=== PATIENT | male | born 1985 | race Caucasian/White ===

== ENCOUNTER 2022-06-27 16:06 | Emergency (ER) | payer SELFPAY ==
[2022-06-27 16:15] VITALS: BP 108/69; PULSE 81; RESP 16; TEMP 36.8; O2SAT 96
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
[2022-06-27 17:59] VITALS: RESP 16; O2SAT 94
[2022-06-27] MEDS: benzonatate 100 mg Capsule PO (17:59)
[2022-06-27] MEDS: morphine 4 mg/mL SDV 1 mL IM (17:59)
[2022-06-27 18:30] VITALS: BP 111/82; PULSE 72; RESP 16; O2SAT 95
== END 2022-06-27 18:48 | disposition home or self-care (01) ==
LOC: ER 18:02 → NP 09-19 17:13
PROVIDERS: Emergency Provider Emergency Medicine; PCP Physician Assistant Medical
DX: R09.1 Pleurisy (principal)
CPT/HCPCS: 71046; 96372; 99284; J2270

== ENCOUNTER 2023-04-13 18:12 | Emergency (ER) | payer OTHER, SELFPAY ==
[2023-04-13 18:28] VITALS: BP 122/78; PULSE 86; RESP 15; TEMP 36.7; O2SAT 96
--- NOTE | 2023-04-13 19:26 | XRR_ITS ---
PROCEDURE INFORMATION: Exam: XR Chest Exam date and time: 04/13/2023 7:36 PM Age: 37 years old Clinical indication: Dyspnea; Additional info: Dyspnea asthma TECHNIQUE: Imaging protocol: Radiologic exam of the chest. Views: 1 view. COMPARISON: CR XR chest 2V* [id number] 06/27/2022 4:51 PM FINDINGS: Lungs: Unremarkable. No consolidation. Pleural spaces: Unremarkable. No pleural effusion. No pneumothorax. Heart/Mediastinum: Unremarkable. No cardiomegaly. Bones/joints: Unremarkable. XR/XR chest 1V portable [id number] IMPRESSION: No acute findings.
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
[2023-04-13] MEDS: dexamethasone 10 mg/mL INJ IM (19:40)
[2023-04-13 19:41] VITALS: BP 119/90; PULSE 79; O2SAT 97
[2023-04-13 19:46] VITALS: PULSE 80; RESP 17; O2SAT 97
[2023-04-13] MEDS: ipratropium-albuterol 3 mL Neb INHALATION (19:49)
[2023-04-13 19:52] VITALS: PULSE 88
[2023-04-13 19:53] LABS: Basophils % 0.4 %; Eosinophils # 0.3 10^3/uL (0.0-0.8); Eosinophils % 2.7 %; Hematocrit 48.1 % (37-53); Lymphocytes # 2.5 10^3/uL (0.8-4.8); Lymphocytes % 26.4 %; Mean Corpuscular HGB Conc 34.5 g/dL (30-55); Mean Corpuscular Hemoglobin 29.9 pg (27-33); Mean Corpuscular Volume 86.7 fl (82-101); Mean Platelet Volume 9.4 fL (7.4-10.4); Monocytes # 0.7 10^3/uL (0.2-0.9); Monocytes % 7.6 %; Neutrophils # 5.87 10^3/uL (1.8-7.7); Neutrophils % 62.4 %; Nucleated Red Blood Cells % 0 %; Platelet Count 280 10^3/cmm (157-399); Red Blood Count 5.55 10^6/uL (3.85-5.65); Red Cell Distribution Width 12.5 % (12.1-15.1); White Blood Count 9.42 10^3/uL (3.29-11.43)
[2023-04-13] MEDS: ketorolac 60 mg/2 mL INJ IM (20:08)
[2023-04-13 20:16] LABS: Alanine Aminotransferase 63 U/L (0-41); Albumin Level 4.5 g/dL (3.5-5.2); Alkaline Phosphatase 148 U/L (40-130); Aspartate Amino Transferase 32 U/L (0-40); Blood Urea Nitrogen 12 mg/dL (6-20); Calcium 9.1 mg/dL (8.5-10.5); Carbon Dioxide 26 mmol/L (22-29); Chloride 103 mmol/L (98-107); Globulin 2.9 g/dL (1.3-4.6); Glomerular Filtration Rate 94.4 mL/min (90-130); Glucose 98 mg/dL (65-115); Osmolality Calculated 292 mOsm/kg (285-295); Sodium 141 mmol/L (136-145); Total Bilirubin 0.7 mg/dL (0.15-1.2); Total Protein 7.4 g/dL (6.6-8.7)
== END 2023-04-13 20:36 | disposition home or self-care (01) ==
PROVIDERS: Emergency Provider Emergency Medicine; PCP Nurse Practitioner
DX: J45.21 Mild intermittent asthma with (acute) exacerbation (principal); G43.909 Migraine, unspecified, not intractable, without status migrainosus
CPT/HCPCS: 36415; 71045; 80053; 85025; 94640; 96372; 99284; J1100; J1885

== ENCOUNTER 2023-08-01 19:15 | Emergency (ER) | payer OTHER, SELFPAY ==
--- NOTE | 2023-08-01 19:18 | XRR_ITS ---
PROCEDURE INFORMATION: Exam: XR Chest Exam date and time: 08/01/2023 7:31 PM Age: 38 years old Clinical indication: Shortness of breath; Additional info: SOB TECHNIQUE: Imaging protocol: Radiologic exam of the chest. Views: 1 view. COMPARISON: CR XR chest 1V portable [id number] 04/13/2023 7:36 PM FINDINGS: Lungs: Unremarkable. No consolidation. Pleural spaces: Unremarkable. No pleural effusion. No pneumothorax. Heart/Mediastinum: Unremarkable. No cardiomegaly. Bones/joints: Unremarkable. XR/XR chest 1V portable [id number] IMPRESSION: No acute findings.
[2023-08-01 19:24] VITALS: BP 127/92; PULSE 92; RESP 17; TEMP 36.6; O2SAT 98; BMI 29.2
--- NOTE | 2023-08-01 20:05 | ED_ITS ---
HPI - SOB/Dyspnea General: Chief Complaint: Shortness of Breath/Dyspnea Stated Complaint: SOB Time Seen by Provider: 08/01/23 20:00 History of Present Illness: HPI Narrative: 38-year-old male presents emergency depa rtment with complaints of feeling like he has the start of an asthma attack. He states he is very aware of when he starts to have an asthma attack as he has had asthma for a very long time. He states that usually this time of year with his weather change and thinks that he has been doing outside can cause his asthma to flare and have significant difficulties. He states that he is maxed out his rescue inhaler and feels that it is not correcting his expiratory wheezing and feelings of shortness of breath. He denies chest pain dizziness or lightheaded feeling. He denies nausea or vomiting. He denies recent sick contacts or productive cough. Review of Systems General: Reports: 10 or more systems reviewed and unremarkable except in HPI and below Resp: Reports: dyspnea and wheezing [facility] ED PFSH: Medical History Psychiatric care Physical Exam Narrative: EXAM NARRATIVE: Constitutional: the patient appears well nourished and of normal development. Vital signs as documented. No acute distress at present. Alert and oriented-to person, place, time and situation. Head, eyes, ears, nose, mouth, throat: Normocephalic, atraumatic. Pupils-equal, round, reactive to light. No scleral icterus. Normal-appearing external ears. Normal appearing nasal turbinates, no drainage. No obvious oral lesions, posterior oropharynx without erythema or exudates. Neck: Supple, trachea is midline, no lymphadenopathy, no jugular venous distension, thyromegaly, or carotid bruits. Carotid upstrokes are brisk bilaterally. Lungs: Bilateral expiratory wheezes noted. Slightly tachypneic, symmetrical rise and fall of chest, mild increased work of breathing at present. Cardiac: Regular rate and rhythm, positive S1, S2. No murmurs, rubs or gallops that I can appreciate Abdomen: Soft, non-tender to palpation, normal active bowel sounds to all quadr ants. No palpable masses, no organomegaly and abdominal bruits. Extremities: 2+ pulses in the upper extremities that are equal bilaterally, 2+ pulses in the lower extremities that are equal bilaterally. Non-edematous. Moves all extremities well, sensation to all extremities are noted. Skin: Warm, dry, intact. Course Vital Signs: Vital signs: Vital Signs Temperature 97.8 F 08/01/23 19:24 Pulse Rate 94 08/01/23 20:22 Respiratory Rate 18 08/01/23 20:14 Blood Pressure 127/92 08/01/23 19:24 Pulse Oximetry 98 08/01/23 20:22 Oxygen Delivery Me thod Room Air 08/01/23 20:22 MDM - SOB/Dyspnea Medical Decision Making Physical exam completed and documented the patient stated he did not wish to have any laboratory evaluation or an EKG but would allow us to do a chest x-ray steroid medication ministration and a DuoNeb breathing treatment. Medical Records I reviewed the patient's medical records. Lab Data Labs/Radiology: Radiology Impressions Chest X-Ray 08/01/23 19:18 IMPRESSION: No acute findings. All radiology interpretation(s) finalized by discharge Discharge Plan Discharge Patient Disposition: Home Clinical Impression: Asthma with exacerbation Qualifiers: Asthma severity: mild Asthma persistence: intermittent Qualified Code(s): J45.21 - Mild intermittent asthma with (acute) exacerbation Condition: Stable Prescriptions: New prednisone 20 mg tablet 40 mg PO DAILY 5 Days Qty: 10 0RF albuterol sulfate 90 mcg/actuation HFA aerosol inhaler 2 inh inhalation Q6H PRN (Reason: shortness of breath or wheezing) Qty: 8.5 0RF No Action clindamycin HCl 300 mg capsule 300 mg PO TID 7 Days Qty: 21 0RF albuterol sulfate 90 mcg/actuation HFA aerosol inhaler 2 puff inhalation Q6H PRN Spiriva with HandiHaler 18 mcg capsule, w/inhalation device 1 cap inhalation DAILY Rx Instructions: puncture 1 cap using device; one dose = 2 inhalations omeprazole 20 mg capsule,delayed release(DR/EC) 20 mg PO BID diclofenac sodium 25 mg tablet,delayed release (DR/EC) 25 mg PO BID citalopram [Celexa] 20 mg tablet 20 mg PO DAILY Qty: 30 2RF quetiapine 25 mg tablet 25 mg PO .qhs 30 Days Qty: 30 3RF bupropion HCl 75 mg tablet See Rx Instructions .ROUTE .COMPLEX 30 Days Qty: 30 3RF Rx Instructions: Take a half tab p.o. every a.m. x8 days then take a whole tab p.o. every a.m. if tolerated buspirone 30 mg tablet 30 mg PO BID 30 Days Qty: 60 2RF Discharge Orders: Discharge ED (Routine); Ordered 08/01/23 Ordered By: Harsh Quintana Referrals: Yamilex Jiménez FNP-BC [Primary Care Provider] - Discharge Diet: Advance as tolerated Discharge Activity: Resume usual activity Patient Instructions: Opioid Safety, Pain Management Activity Restrictions/Additional Instructions: Activity Restrictions/Additional Instructions: Thank you for choosing [facility] for your healthcare needs today. Please realize that you were seen in the Emergency Department and that we are providing you with an emergency medical screening exam and this may not be a complete and all inclusive of all the testing and or medical work-up that you may need to determine your ailment or severity of your illness. It is very important that you follow-up as instructed with your Primary care provider or Specialist for additional evaluation and to discuss your medical treatment plan. You may return to the Emergency Department should you have concerns or if your condition changes or worsens in any way. 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
[2023-08-01 20:14] VITALS: PULSE 83; RESP 18; O2SAT 95
[2023-08-01] MEDS: ipratropium-albuterol 3 mL Neb INHALATION (20:14)
[2023-08-01 20:22] VITALS: PULSE 94; O2SAT 98
[2023-08-01] MEDS: methylPREDNISolone sod succ 125 mg/2 mL INJ 60 MG IM (20:33)
== END 2023-08-01 20:36 | disposition home or self-care (01) ==
PROVIDERS: Emergency Provider Internal Medicine; PCP Nurse Practitioner
DX: J45.21 Mild intermittent asthma with (acute) exacerbation (principal)
CPT/HCPCS: 71045; 94640; 96372; 99285; J2930

== ENCOUNTER 2023-10-29 15:15 | Inpatient (IN) | payer BC, SELFPAY ==
[2023-10-29 15:16] VITALS: BMI 27.8
[2023-10-29 15:18] VITALS: BP 131/98; PULSE 113; RESP 16; TEMP 36.9; O2SAT 99
[2023-10-29 16:20] LABS: Amphetamines Screen Urine Negative (Negative); Barbiturates Screen Urine Negative (Negative); Benzodiazepines Screen Urine Negative (Negative); Cocaine Screen Urine Negative (Negative); Opiate Screen Urine Negative (Negative); PCP Screen Urine Negative (Negative); THC Screen Urine Negative (Negative)
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
[2023-10-29 17:07] LABS: Basophils # 0.1 10^3/uL (0.0-0.1); Basophils % 0.7 %; Eosinophils # 0.2 10^3/uL (0.0-0.8); Eosinophils % 1.7 %; Hematocrit 50.8 % (37-53); Lymphocytes # 1.4 10^3/uL (0.8-4.8); Lymphocytes % 14.3 %; Mean Corpuscular HGB Conc 34.4 g/dL (30-55); Mean Corpuscular Hemoglobin 30.5 pg (27-33); Mean Corpuscular Volume 88.5 fl (82-101); Mean Platelet Volume 10.1 fL (7.4-10.4); Monocytes # 0.6 10^3/uL (0.2-0.9); Monocytes % 6.2 %; Neutrophils # 7.69 10^3/uL (1.8-7.7); Neutrophils % 76.7 %; Nucleated Red Blood Cells % 0 %; Platelet Count 254 10^3/cmm (157-399); Red Blood Count 5.74 10^6/uL (3.85-5.65); Red Cell Distribution Width 12.1 % (12.1-15.1); White Blood Count 10.02 10^3/uL (3.29-11.43)
[2023-10-29 17:41] LABS: Alanine Aminotransferase 58 U/L (0-41); Albumin Level 4.3 g/dL (3.5-5.2); Alkaline Phosphatase 160 U/L (40-130); Anion Gap 16.2 (5-19); Aspartate Amino Transferase 36 U/L (0-40); Blood Urea Nitrogen 14 mg/dL (6-20); Calcium 9.5 mg/dL (8.5-10.5); Carbon Dioxide 25 mmol/L (22-29); Chloride 102 mmol/L (98-107); Creatinine Clr Calc Pharmacy 103.8913; Glomerular Filtration Rate 74.5 mL/min (90-130); Glucose 125 mg/dL (65-115); Osmolality Calculated 290 mOsm/kg (285-295); Potassium 4.2 mmol/L (3.5-5.1); Salicylate 1.5 mg/dL (3-10); Sodium 139 mmol/L (136-145); Thyroid Stimulating Hormone 1.62 uIU/mL (0.27-4.20); Total Bilirubin 0.8 mg/dL (0.15-1.2); Total Protein 7.3 g/dL (6.6-8.7)
[2023-10-29 17:42] LABS: Acetaminophen < 5.0 ug/mL (10-30)
[2023-10-29 18:00] VITALS: PULSE 115; RESP 16; O2SAT 99
[2023-10-29 20:42] VITALS: BP 129/84; PULSE 92; RESP 18; TEMP 36.7; O2SAT 97
[2023-10-29 21:42] VITALS: BP 129/84; PULSE 92; RESP 18; TEMP 36.7; O2SAT 97
[2023-10-29 22:00] VITALS: BP 129/84; PULSE 92; RESP 18; TEMP 36.7; O2SAT 97
[2023-10-30] MEDS: trazodone 50 mg Tablet PO (01:17)
[2023-10-30] MEDS: OLANZapine 5 mg ODT PO (02:02)
[2023-10-30 06:00] VITALS: RESP 16
--- NOTE | 2023-10-30 08:38 | PC.NURSE ---
PT RESTING IN BED AROUSES TO VOICE. DENIES PAIN. PT IS OBSERVED HAVING A FLAT AFFECT AND DEPRESSED MOOD, WITHDRAWS TO ROOM. DECLINED BREAKFAST THIS AM. SNACKS OFFERED. DENIES SI/HI AND AVH AT THIS TIME. RATES ANXIETY /10 AND DEPRESSION 08/30. DECLINES NEED FOR ANXIETY MEDICATIONS. ALL QUESTIONS WERE ANSWERED AND SUPPORT WAS VOICED.
[2023-10-30] MEDS: pantoprazole DR 40 mg Tablet PO (08:53)
[2023-10-30] MEDS: montelukast sodium 10 mg Tablet PO (08:53)
[2023-10-30 09:14] VITALS: PULSE 92; RESP 16; O2SAT 97
[2023-10-30] MEDS: budesonide 0.5 mg/2 mL Neb INHALATION ×2 (09:14→21:03)
[2023-10-30] MEDS: albuterol 2.5 mg/3 mL Neb INHALATION (09:14)
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
[2023-10-30 14:00] VITALS: BP 108/75; PULSE 91; RESP 17; TEMP 36.5; O2SAT 97
[2023-10-30] MEDS: BuSPIRONE 10 mg Tablet 15 MG PO ×2 (14:29→17:12)
[2023-10-30] MEDS: cetirizine 10 mg Tablet PO (17:12)
[2023-10-30 20:38] VITALS: BP 115/78; PULSE 98; RESP 18; TEMP 36.9; O2SAT 96
[2023-10-30 21:03] VITALS: PULSE 74; RESP 16; O2SAT 97
[2023-10-31 06:00] VITALS: BP 97/61; PULSE 62; RESP 18; TEMP 36.5; O2SAT 96
[2023-10-31] MEDS: pantoprazole DR 40 mg Tablet PO (08:15)
[2023-10-31] MEDS: montelukast sodium 10 mg Tablet PO (08:15)
[2023-10-31] MEDS: BuSPIRONE 10 mg Tablet 15 MG PO ×2 (08:15→17:42)
[2023-10-31 09:04] VITALS: PULSE 62; RESP 18; O2SAT 96
[2023-10-31] MEDS: budesonide 0.5 mg/2 mL Neb INHALATION (09:04)
[2023-10-31] MEDS: acetaminophen 325 mg Tablet 650 MG PO ×2 (10:24→19:59)
[2023-10-31 14:00] VITALS: RESP 18
--- NOTE | 2023-10-31 14:43 | W.PM.NPUPNS ---
Subjective NPU Subjective: Patient presented today reporting that he is doing okay with the BuSpar. We discussed the fact that I reviewed the medications that he had been on before and we discussed the risks, benefits and alternatives of restarting those medications at appropriate doses. He began discussing interest in discharge and we discussed concerns that there were possible weapons in the home given the aggressive nature of his threats with the gun [place] present. We discussed talking with his about having the guns moved to a friend that they had reportedly discussed. He denied any side effects to medication thus far. Mental Status Exam MSE Comments: This is a well-nourished, well-developed white male in hospital scrubs with adequate grooming and limited eye contact. No abnormal movements except for mild psychomotor retardation. Cooperative with exam in mild distress. Speech was slightly decreased rate and volume. Mood described as a stressed and a little depressed, affect subdued. Thought process organized. Thought content: Patient reports symptoms of PTSD, including flashbacks and nightmares. He also reports some depression, which has occasionally led to suicidal thoughts. He reports some anxiety. He has made threats, but insists they were empty threats. He denied active suicidal or homicidal ideation, there were no delusions reported or noted, he denied any auditory or visual hallucinations. Attention and concentration appear intact and memory appears unreliable but none were formally tested. He is alert and oriented x 3. Insight and judgment are limited and impulse control is impaired. Vitals/I&O/Wt Last Vital Signs Temp 97.7 F 10/31/23 06:00 Pulse 62 10/31/23 09:04 Resp 18 10/31/23 09:04 BP 97/61 10/31/23 06:00 Pulse Ox 96 10/31/23 09:04 O2 Del Method Room Air 10/31/23 09:04 Weight last 48 hrs Weight 90.718 kg Data NPU 10/29/23 17:04 10/29/23 17:04 A&P Assessment and plan (1) Homicidal ideation: (2) Suicidal ideation: (3) PTSD (post-traumatic stress disorder): (4) Depression: (5) Anxiety: Plan Patient is a 38-year-old male admitted with concerns secondary to PTSD and significant threats that were made. Patient is struggling with PTSD, anger, and depression. He has made threats, which led to this consultation. He is currently from his and is dealing with a lawsuit related to a workplace injury. He has stopped taking his psychiatric medication. 1. Initiated BuSpar 15 mg p.o. twice daily and start Celexa 20 mg daily and Seroquel 50 mg p.o. nightly restarting the medications that seem to work for him well before he reports Dr. Jacques left and he stopped taking the medication. 2. Encourage individual, group and milieu therapy. 3. Continue q-15 minute checks for safety.? 4.? Recommend sober living treatment at the highest level of care to which the patient is willing to commit. 5. Discussed removal of guns in the home with and reported friend who might be taking the guns. Involuntary Hold Information 96 Hour Hold: 96 Hour Involuntary Admission: No Attestations NPU Medical Necessity Statement*: Inpatient hospitalization is medically necessary and deemed to ?be ?the clinically appropriate intervention ?at this time.? We will monitor/initiate medications and make changes as indicated.? The patient?s likely length of stay 1-4 days. Coding Level of Care Code Acute Code for [facility] Fwd Diagnoses Homicidal ideation R45.850 Suicidal ideation R45.851 PTSD (post-traumatic stress disorder) F43.10 Depression F32.A Anxiety F41.9
--- NOTE | 2023-10-31 17:04 | PC.NURSE ---
spoke with pt spouse Cecily who stated either or Mon all of the weapons currently at their home will be in a secured gun safe at their mutual friends (Floyd Garner) home with pt having no access to them. pt stated that Floyd will have the keys to the safe.
[2023-10-31] MEDS: cetirizine 10 mg Tablet PO (17:42)
[2023-10-31] MEDS: citalopram 20 mg Tablet PO (18:30)
[2023-10-31] MEDS: trazodone 50 mg Tablet PO (19:58)
[2023-10-31] MEDS: quetiapine 25 mg Tablet 50 MG PO (19:58)
[2023-10-31 20:01] VITALS: BP 106/76; PULSE 96; RESP 17; TEMP 36.8; O2SAT 96
[2023-11-01 06:00] VITALS: BP 109/70; PULSE 111; RESP 17; TEMP 36.8; O2SAT 96
[2023-11-01] MEDS: pantoprazole DR 40 mg Tablet PO (08:02)
[2023-11-01] MEDS: citalopram 20 mg Tablet PO (08:02)
[2023-11-01] MEDS: BuSPIRONE 10 mg Tablet 15 MG PO ×2 (08:02→17:17)
[2023-11-01] MEDS: montelukast sodium 10 mg Tablet PO (08:02)
[2023-11-01] MEDS: acetaminophen 325 mg Tablet 650 MG PO ×2 (09:00→20:28)
[2023-11-01 14:00] VITALS: BP 109/62; PULSE 90; RESP 17; TEMP 36.5; O2SAT 96
[2023-11-01] MEDS: cetirizine 10 mg Tablet PO (17:17)
--- NOTE | 2023-11-01 19:47 | P.NPUPN_ITS ---
Subjective NPU 2 Subjective: Patient presented today reporting that he is feeling better. He reports that he and his talk a lot and he is feeling optimistic that with medication and active treatment things will improve day by day. Reviewed wanting to make sure that his friend is taking responsibility for the removal of guns. He denied any side effects of the medication and we discussed a tentative plan for discharge in the morning. Mental Status Exam 2 MSE Comments: This is a well-nourished, well-developed white male in hospital scrubs with adequate grooming and eye contact. No abnormal movements except for mild psychomotor retardation. Cooperative with exam in no acute distress. Speech was slightly decreased rate and volume. Mood described as feeling better, affect congruent. Thought process organized. Thought content: He reports some fleeting anxiety. He denied active suicidal or homicidal ideation, there were no delusions reported or noted, he denied any auditory or visual hallucinations. Attention and concentration appear intact and memory appears more reliable but none were formally tested. He is alert and oriented x 3. Insight and judgment are limited, but improving and impulse control is improving. Vitals/I&O/Wt Last Vital Signs Temp 97.7 F 11/01/23 14:00 Pulse 90 11/01/23 14:00 Resp 17 11/01/23 14:00 BP 109/62 11/01/23 14:00 Pulse Ox 96 11/01/23 14:00 O2 Del Method Room Air 11/01/23 08:00 Data NPU 10/29/23 17:04 10/29/23 17:04 A&P Assessment and plan (1) Homicidal ideation: (2) Suicidal ideation: (3) PTSD (post-traumatic stress disorder): (4) Depression: (5) Anxiety: Plan Patient is a 38-year-old male admitted with concerns secondary to PTSD and significant threats that were made. Patient is struggling with PTSD, anger, and depression. He has made threats, which led to this consultation. He is currently from his and is dealing with a lawsuit related to a workplace injury. He has stopped taking his psychiatric medication. 1. Initiated BuSpar 15 mg p.o. twice daily and started Celexa 20 mg daily and Seroquel 50 mg p.o. nightly restarting the medications that seem to have worked for him well before he reports Dr. Jacques left and he stopped taking the medication. 2. Encourage individual, group and milieu therapy. 3. Continue q-15 minute checks for safety.? 4.? Recommend sober living treatment at the highest level of care to which the patient is willing to commit. 5. Discussed removal of guns in the home with and reported friend who might be taking the guns. Plan for guns to be removed from the home tomorrow and he will not be at the home prior to this weekend if he were discharged. Involuntary Hold Information 2 96 Hour Hold: 96 Hour Involuntary Admission: No Attestations NPU 2 Medical Necessity Statement*: Inpatient hospitalization is medically necessary and deemed to ?be ?the clinically appropriate intervention ?at this time.? We will monitor/initiate medications and make changes as indicated.? The patient?s likely length of stay 1 day. Coding Level of Care Code Acute Code for g Fwd Diagnoses Homicidal ideation R45.850 Suicidal ideation R45.851 PTSD (post-traumatic stress disorder) F43.10 Depression F32.A Anxiety F41.9
[2023-11-01 20:15] VITALS: BP 116/67; PULSE 81; RESP 18; TEMP 36.7; O2SAT 96
[2023-11-01] MEDS: quetiapine 25 mg Tablet 50 MG PO (20:26)
[2023-11-01] MEDS: trazodone 50 mg Tablet PO (20:26)
[2023-11-02] MEDS: OLANZapine 5 mg ODT PO (00:06)
[2023-11-02 06:00] VITALS: BP 109/67; PULSE 106; RESP 17; TEMP 36.8; O2SAT 96
[2023-11-02] MEDS: BuSPIRONE 10 mg Tablet 15 MG PO (08:12)
[2023-11-02] MEDS: montelukast sodium 10 mg Tablet PO (08:12)
[2023-11-02] MEDS: citalopram 20 mg Tablet PO (08:12)
[2023-11-02] MEDS: pantoprazole DR 40 mg Tablet PO (08:12)
--- NOTE | 2023-11-02 09:35 | PC.NURSE ---
patient states that he is doing good . Patient denies SI, HI, AVH, depression, and anxiety.
[2023-11-02 11:13] VITALS: BP 109/67; PULSE 106; RESP 17; TEMP 36.8; O2SAT 96
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
--- NOTE | 2023-11-02 12:01 | PC.NURSE ---
This nurse spoke with patient's nurse Cecily
--- NOTE | 2023-11-02 12:02 | PC.NURSE ---
This nurse spoke with patient's Cecily. Cecily stated that all guns have been removed from the premises.
== END 2023-11-02 12:15 | disposition home or self-care (01) | DRG 882 ==
LOC: ER 18:54 → NP 20:09
PROVIDERS: Admitting Provider Psychiatry & Neurology Psychiatry; Emergency Provider General Practice; Visit Provider Psychiatry & Neurology Psychiatry
DX: F43.12 Post-traumatic stress disorder, chronic (principal); R45.851 Suicidal ideations; R45.850 Homicidal ideations; F32.A Depression, unspecified; F41.9 Anxiety disorder, unspecified; R45.4 Irritability and anger; Z63.0 Problems in relationship with spouse or partner; F90.9 Attention-deficit hyperactivity disorder, unspecified type
CPT/HCPCS: 80053; 80306; 80307; 84443; 85025; 94640; 97150; 97165; 99285; J7613; J7626

== ENCOUNTER → 2024-02-28 10:07 | Outpatient (BNVA) | payer BC, SELFPAY | PROVIDERS: Visit Provider Nurse Practitioner Psychiatric/Mental Health | DX: Z79.899 Other long term (current) drug therapy | CPT/HCPCS: 80053; 80061; 83036 ==

== ENCOUNTER 2024-02-29 04:40 | Emergency (ER) | payer BC, SELFPAY ==
[2024-02-29 04:44] VITALS: BP 109/89; PULSE 146; RESP 15; TEMP 36.5; O2SAT 96; BMI 28.5
[2024-02-29] MEDS: methylPREDNISolone sod succ 125 mg/2 mL INJ IVP (05:00)
[2024-02-29] MEDS: magnesium sulfate premix 2 GM/50 ML PIGGYBACK IV (05:03)
[2024-02-29] MEDS: ipratropium-albuterol 3 mL Neb INHALATION (05:05)
[2024-02-29] MEDS: albuterol 2.5 mg/3 mL Neb INHALATION (05:05)
[2024-02-29] MEDS: ondansetron 2 mg/ML SDV 2 mL 8 MG IVP (05:06)
[2024-02-29 05:09] VITALS: PULSE 115; RESP 24; O2SAT 94
--- NOTE | 2024-02-29 05:10 | XRR_ITS ---
PROCEDURE INFORMATION: Exam: XR Chest Exam date and time: 02/29/2024 5:20 AM Age: 38 years old Clinical indication: Shortness of breath TECHNIQUE: Imaging protocol: Radiologic exam of the chest. Views: 1 view. COMPARISON: CR XR chest 1V portable [id number] 08/01/2023 7:31 PM FINDINGS: Lungs: Unremarkable. No consolidation. Pleural spaces: Unremarkable. No pleural effusion. No pneumothorax. Heart/Mediastinum: Unremarkable. No cardiomegaly. Bones/joints: Unremarkable. XR/XR chest 1V portable [id number] IMPRESSION: No acute findings.
--- NOTE | 2024-02-29 05:10 | ED_ITS ---
HPI - SOB/Dyspnea 2 General: Chief Complaint: Shortness of Breath/Dyspnea Stated Complaint: SOB,Couphing,Weakness Time Seen by Provider: 02/29/24 04:48 History of Present Illness: HPI Narrative: 38-year-old with a history of traumatic brain injury, asthma who presents to the emergency room with shortness of breath. He says this episode started with a coughing fit at home. On presentation he is quite tachypneic. He has some wheeze. He is tachycardic. He reports no fevers. No chest pain. Review of Systems 2 Narrative: Constitutional symptoms: Negative except as documented in HPI. Skin symptoms: Negative except as documented in HPI. Eye symptoms: Negative except as documented in HPI. ENMT symptoms: Negative except as documented in HPI. Respiratory symptoms: Negative except as documented in HPI. Cardiovascular symptoms: Negative except as documented in HPI. Gastrointestinal symptoms: Negative except as documented in HPI. Genitourinary symptoms: Negative except as documented in HPI. Musculoskeletal symptoms: Negative except as documented in HPI. Neurologic symptoms: Negative except as documented in HPI. Psychiatric symptoms: Negative except as documented in HPI. Endocrine symptoms: Negative except as documented in HPI. [facility] ED 2 PFS: Medical History (Updated 02/29/24 @ 05:35 by Racquel Tijerina MD) Nicotine dependence, chewing tobacco, uncomplicated Personal history of traumatic brain injury Chronic post-traumatic stress disorder (PTSD) after combat Psychiatric care Physical Exam 2 Narrative: EXAM NARRATIVE: General: Alert, no acute distress. Skin: Warm, dry. Head: Normocephalic, atraumatic. Neck: Supple, trachea midline. Eye: Extraocular movements are intact. Ears, nose, mouth and throat: Oral mucosa moist. Cardiovascular: Regular, tachycardic, Normal peripheral perfusion. Respiratory: coarse, scattered wheeze, mild increased wob. tachypnea, breath sounds are equal, Symmetrical chest wall expansion. Gastrointestinal: Soft, Nontender, Non distended, Normal bowel sounds. Musculoskeletal: Normal ROM, no deformity. Neurological: Alert and oriented to person, place, time, and situation, No focal neurological deficit observed. Psychiatric: Cooperative, appropriate mood & affect. Course 2 Vital Signs: Vital signs: Vital Signs Temperature 97.7 F 02/29/24 04:44 Pulse Rate 118 H 02/29/24 05:39 Respiratory Rate 18 02/29/24 05:39 Blood Pressure 124/79 02/29/24 05:39 Pulse Oximetry 94 02/29/24 05:39 Oxygen Delivery Me thod Room Air 02/29/24 05:22 MDM - SOB/Dyspnea Medical Decision Making Differential diagnosis for patient with shortness of breath includes but is not limited to and based on the above HPI, review of systems and physical exam: Pneumonia. Bronchitis. Asthma or COPD with acute exacerbation. Acute coronary syndrome / AR. Pulmonary embolism. Anxiety. Congestive heart failure. Viral infections including influenza and Covid-19. Atrial fibrillation. Anxiety. Pleural effusion. Pneumothorax. Workup: Lab work, chest X-ray and EKG ordered to evaluate, rule in and rule out above pathologies EKG: Time 4:46 AM. Rate 138. Sinus tachycardia, No ST-T changes, no ectopy, normal AK & QRS intervals, This was reviewed and interpreted by myself the ER physician at 4:50 AM Lab work: This was reviewed and interpreted by myself emergency room physician. Patient has mild leukocytosis with a white count 11.4. He is polycythemic at 18. This is not much above his normal baseline I think he is a bit concentrated. Is also supported by BUN and creatinine of 19 and 1.1. Fluids have been given. Chest x-ray: No acute process. No infiltrate. No pneumothorax. This was reviewed and interpreted by myself the ER physician. I reviewed the patient's medical record. A sepsis alert was present. Patient was tachycardic secondary to breathing treatments and shortness of breath. He does not have a pneumonia. He does not have leukocytosis. He does not appear to be septic. He did appear to be a little bit dehydrated some fluids were given. Assessment and plan: Asthma exacerbation Dehydration -Fairly severe asthma exacerbation. 2 more updrafts were given here. IV Solu- Medrol and IV magnesium were given. -Normal saline bolus was given. - Discharged home - Discussed plan with patient. Answered any questions. - Evaluation and treatment of this problem were appropriate in the emergency setting. Lab Data 02/29/24 04:51 02/29/24 04:51 Labs/Radiology: Radiology Impressions Chest X-Ray 02/29/24 05:10 IMPRESSION: No acute findings. Laboratory Results WBC 11.36 10^3/uL (3.29-11.43) 02/29/24 04:51 RBC 5.88 10^6/uL (3.85-5.65) H 02/29/24 04:51 Hgb 18.10 g/dL (11.27-16.99) H 02/29/24 04:51 Hct 52.8 % (37-53) 02/29/24 04:51 MCV 89.8 fl (82-101) 02/29/24 04:51 MCH 30.8 pg (27-33) 02/29/24 04:51 MCHC 34.3 g/dL (30-55) 02/29/24 04:51 RDW 12.1 % (12.1-15.1) 02/29/24 04:51 Plt Count 292 10^3/cmm (157-399) 02/29/24 04:51 MPV 9.7 fL (7.4-10.4) 02/29/24 04:51 Neut % (Auto) 44.7 % 02/29/24 04:51 Lymph % (Auto) 43.1 % 02/29/24 04:51 [place] % (Auto) 7.6 % 02/29/24 04:51 Eos % (Auto) 3.3 % 02/29/24 04:51 Baso % (Auto) 0.6 % 02/29/24 04:51 Neut # (Auto) 5.07 10^3/uL (1.8-7.7) 02/29/24 04:51 Lymph # (Auto) 4.9 10^3/uL (0.8-4.8) H 02/29/24 04:51 [place] # (Auto) 0.9 10^3/uL (0.2-0.9) 02/29/24 04:51 Eos # (Auto) 0.4 10^3/uL (0.0-0.8) 02/29/24 04:51 Baso # (Auto) 0.1 10^3/uL (0.0-0.1) 02/29/24 04:51 Nucleated RBC % (auto) 0 % 02/29/24 04:51 Nucleated RBCs # 0.0 /100WBC 02/29/24 04:51 Sodium 142 mmol/L (136-145) 02/29/24 04:51 Potassium 3.9 mmol/L (3.5-5.1) 02/29/24 04:51 Chloride 105 mmol/L (98-107) 02/29/24 04:51 Carbon Dioxide 21 mmol/L (22-29) L 02/29/24 04:51 Anion Gap 19.9 (5-19) H 02/29/24 04:51 BUN 19 mg/dL (6-20) 02/29/24 04:51 Creatinine 1.1 mg/dL (0.7-1.2) 02/29/24 04:51 GFR Calculation 74.5 mL/min (90-130) L 02/29/24 04:51 Glucose 119 mg/dL (65-115) H 02/29/24 04:51 Calculated Osmolality 297 mOsm/kg (285-295) H 02/29/24 04:51 Lactic Acid 3.0 mmol/L (0.5-2.2) H 02/29/24 05:18 Calcium 9.5 mg/dL (8.5-10.5) 02/29/24 04:51 Total Bilirubin 0.8 mg/dL (0.15-1.2) 02/29/24 04:51 AST 27 U/L (0-40) 02/29/24 04:51 ALT 45 U/L (0-41) H 02/29/24 04:51 Alkaline Phosphatase 161 U/L (40-130) H 02/29/24 04:51 C-Reactive Protein 3.0 mg/L (0.0-4.9) 02/29/24 04:51 Total Protein 7.9 g/dL (6.6-8.7) 02/29/24 04:51 Albumin 4.5 g/dL (3.5-5.2) 02/29/24 04:51 Globulin 3.4 g/dL (1.3-4.6) 02/29/24 04:51 XR interpretation done by ED provider, pending radiology final review Discharge Plan Discharge Patient Disposition: Home Clinical Impression: Asthma with exacerbation Qualifiers: Asthma severity: moderate Asthma persistence: unspecified Qualified Code(s): J 45.901 - Unspecified asthma with (acute) exacerbation Condition: Stable Prescriptions: New Zithromax Z-Mauricio 250 mg tablet See Rx Instructions .ROUTE .COMPLEX Qty: 6 0RF Rx Instructions: For 250 mg dose pack: take 500 mg today (day 1), then 250 mg for 4 days (days 2-5) prednisone 20 mg tablet 60 mg PO DAILY Qty: 20 0RF Rx Instructions: 3 tabs (60 mg) x 3 days. 2 tabs (40 mg) x 3 days. 1 tab (20 mg) x 3 days. 1/2 tab (10 mg) x 4 days ondansetron 8 mg tablet,disintegrating 8 mg PO .q6 PRN (Reason: nausea and vomiting) Qty: 14 0RF No Action quetiapine [Seroquel] 100 mg tablet 100 mg PO BEDTIME Qty: 90 2RF Rx Instructions: Take one tablet at bedtime cyproheptadine 4 mg tablet 8 mg PO DIRECTED PRN (Reason: sexual activity) Qty: 60 3RF Rx Instructions: May take two tablets 30 minutes prior to sexual activity citalopram 20 mg tablet 20 mg PO .morning 30 Days Qty: 90 2RF Rx Instructions: Take one tablet every morning buspirone 15 mg tablet 15 mg PO BID Qty: 180 2RF Rx Instructions: Take one tablet twice per day albuterol sulfate 90 mcg/actuation HFA aerosol inhaler 2 inh inhalation Q6H PRN (Reason: shortness of breath or wheezing) Qty: 8.5 0RF cetirizine 10 mg tablet 10 mg PO DAILY montelukast 10 mg tablet 10 mg PO DAILY esomeprazole magnesium 20 mg capsule,delayed release(DR/EC) 20 mg PO DAILY Symbicort 160-4.5 mcg/actuation HFA aerosol inhaler 2 inh INHALATION BID Discharge Orders: Discharge ED (Routine); Ordered 02/29/24 Ordered By: Racquel Tijerina Discharge Diet: Usual diet Discharge Activity: Increase activity as tolerated Patient Instructions: Asthma (ED) Activity Restrictions/Additional Instructions: Thank you for choosing [facility] for your healthcare needs today. Please realize this is an emergency room and that we are providing you with a medical screening exam and this may not be complete and all inclusive of all the testing and or work up that you may need to determine your ailment or severity of your illness. You have been screened and evaluated and felt safe for discharge. Health conditions do change or evolve sometimes and as such it is important that you follow up with your Primary Doctor to be re checked, 3-5 days is a general good time frame for follow up. You are always welcome to return to the ED for re assessment if your symptoms are worsening or you have new concerns Coding Level of Care Code ED Sports Equipment Supervisor for Sammy Chilel
--- NOTE | 2024-02-29 05:10 | ECG_ITS ---
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 Measurements Intervals [place] Rate: 138 P: 49 NM: 140 QRS: -2 QRSD: 101 T: 33 QT: 301 QTc: 457 Interpretive Statements SINUS TACHYCARDIA INCOMPLETE RIGHT BUNDLE BRANCH BLOCK [90+ ms QRS DURATION, TERMINAL R IN V1/V2, 40+ ms S IN I/aVL/V4/V5/V6] MODERATE ST DEPRESSION [0.05+ mV ST DEPRESSION] No previous ECG available for comparison Electronically Signed On 02-29-2024 23:22:06 CDT by Dennis Hubbard M.D. [email or web address], [email or web address]/store/[id number] f
[2024-02-29 05:16] LABS: Basophils # 0.1 10^3/uL (0.0-0.1); Basophils % 0.6 %; Eosinophils # 0.4 10^3/uL (0.0-0.8); Eosinophils % 3.3 %; Hematocrit 52.8 % (37-53); Lymphocytes # 4.9 10^3/uL (0.8-4.8); Lymphocytes % 43.1 %; Mean Corpuscular HGB Conc 34.3 g/dL (30-55); Mean Corpuscular Hemoglobin 30.8 pg (27-33); Mean Corpuscular Volume 89.8 fl (82-101); Mean Platelet Volume 9.7 fL (7.4-10.4); Monocytes # 0.9 10^3/uL (0.2-0.9); Monocytes % 7.6 %; Neutrophils # 5.07 10^3/uL (1.8-7.7); Neutrophils % 44.7 %; Nucleated Red Blood Cells % 0 %; Platelet Count 292 10^3/cmm (157-399); Red Blood Count 5.88 10^6/uL (3.85-5.65); Red Cell Distribution Width 12.1 % (12.1-15.1); White Blood Count 11.36 10^3/uL (3.29-11.43)
[2024-02-29] MEDS: sodium chloride 0.9% 1,000 ML 999 ML IV (05:16)
[2024-02-29 05:22] VITALS: PULSE 124; RESP 18; O2SAT 96
[2024-02-29 05:30] LABS: Alanine Aminotransferase 45 U/L (0-41); Albumin Level 4.5 g/dL (3.5-5.2); Alkaline Phosphatase 161 U/L (40-130); Anion Gap 19.9 (5-19); Aspartate Amino Transferase 27 U/L (0-40); Blood Urea Nitrogen 19 mg/dL (6-20); Calcium 9.5 mg/dL (8.5-10.5); Carbon Dioxide 21 mmol/L (22-29); Chloride 105 mmol/L (98-107); Creatinine Clr Calc Pharmacy 105.0482; Globulin 3.4 g/dL (1.3-4.6); Glomerular Filtration Rate 74.5 mL/min (90-130); Glucose 119 mg/dL (65-115); Osmolality Calculated 297 mOsm/kg (285-295); Potassium 3.9 mmol/L (3.5-5.1); Sodium 142 mmol/L (136-145); Total Bilirubin 0.8 mg/dL (0.15-1.2); Total Protein 7.9 g/dL (6.6-8.7)
[2024-02-29 05:39] VITALS: BP 124/79; PULSE 118; RESP 18; O2SAT 94
[2024-02-29 07:10] LABS: Reflex Lactate Order REFLEX LACTIC ORDERD
== END 2024-02-29 06:08 | disposition home or self-care (01) ==
PROVIDERS: Emergency Provider Emergency Medicine
DX: J45.901 Unspecified asthma with (acute) exacerbation (principal); F17.220 Nicotine dependence, chewing tobacco, uncomplicated; Z79.899 Other long term (current) drug therapy
CPT/HCPCS: 71045; 80053; 83605; 85025; 86140; 93005; 94640; 96365; 96375; 99285; J2405; J2919; J3475; J7030; J7613

== ENCOUNTER 2024-03-16 14:10 | Emergency (ER) | payer BC, SELFPAY ==
[2024-03-16 14:18] VITALS: BP 114/81; PULSE 93; RESP 30; TEMP 36.6; O2SAT 94
--- NOTE | 2024-03-16 14:27 | XRR_ITS ---
PROCEDURE INFORMATION: Exam: XR Chest Exam date and time: 03/16/2024 2:51 PM Age: 38 years old Clinical indication: Cough and dyspnea; TECHNIQUE: Imaging protocol: Radiologic exam of the chest. Views: 1 view. COMPARISON: CR (CHEST, ) 02/29/2024 5:20 AM FINDINGS: Lungs: Unremarkable. No consolidation. Pleural spaces: Unremarkable. No pleural effusion. No pneumothorax. Heart/Mediastinum: Unremarkable. No cardiomegaly. Bones/joints: Unremarkable. XR/XR chest 1V portable [id number] IMPRESSION: No acute findings.
--- NOTE | 2024-03-16 14:28 | ECG_ITS ---
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 Measurements Intervals [place] Rate: 99 P: 40 TX: 175 QRS: -2 QRSD: 106 T: 49 QT: 332 QTc: 427 Interpretive Statements SINUS RHYTHM WITH OCCASIONAL SUPRAVENTRICULAR PREMATURE COMPLEXES INCOMPLETE RIGHT BUNDLE BRANCH BLOCK [90+ ms QRS DURATION, TERMINAL R IN V1/V2, 40+ ms S IN I/aVL/V4/V5/V6] NONSPECIFIC T-WAVE ABNORMALITY Compared to ECG 02/29/2024 04:46:42 No significant change Electronically Signed On 03-17-2024 12:05:23 CDT by Renee Enrique M.D. [email or web address]/[id number] f
[2024-03-16 14:37] LABS: Basophils # 0.1 10^3/uL (0.0-0.1); Basophils % 0.8 %; Eosinophils # 0.2 10^3/uL (0.0-0.8); Hematocrit 46.2 % (37-53); Lymphocytes # 2.2 10^3/uL (0.8-4.8); Lymphocytes % 28.6 %; Mean Corpuscular HGB Conc 34.8 g/dL (30-55); Mean Corpuscular Hemoglobin 30.9 pg (27-33); Mean Corpuscular Volume 88.7 fl (82-101); Mean Platelet Volume 9.8 fL (7.4-10.4); Monocytes # 0.7 10^3/uL (0.2-0.9); Monocytes % 8.7 %; Neutrophils # 4.51 10^3/uL (1.8-7.7); Neutrophils % 58.8 %; Nucleated Red Blood Cells % 0 %; Platelet Count 254 10^3/cmm (157-399); Red Blood Count 5.21 10^6/uL (3.85-5.65); Red Cell Distribution Width 12.3 % (12.1-15.1); White Blood Count 7.68 10^3/uL (3.29-11.43)
[2024-03-16] MEDS: ipratropium-albuterol 3 mL Neb INHALATION (14:38)
[2024-03-16 14:42] VITALS: PULSE 84; RESP 20; O2SAT 94
[2024-03-16] MEDS: dexamethasone 10 mg/mL INJ IM (14:47)
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
[2024-03-16 15:02] LABS: Alanine Aminotransferase 33 U/L (0-41); Albumin Level 4.4 g/dL (3.5-5.2); Alkaline Phosphatase 137 U/L (40-130); Aspartate Amino Transferase 20 U/L (0-40); Blood Urea Nitrogen 18 mg/dL (6-20); Calcium 8.9 mg/dL (8.5-10.5); Carbon Dioxide 20 mmol/L (22-29); Chloride 108 mmol/L (98-107); Creatinine Clr Calc Pharmacy 106.2051; Globulin 2.3 g/dL (1.3-4.6); Glomerular Filtration Rate 74.5 mL/min (90-130); Glucose 134 mg/dL (65-115); Osmolality Calculated 296 mOsm/kg (285-295); Sodium 141 mmol/L (136-145); Total Bilirubin 0.9 mg/dL (0.15-1.2); Total Protein 6.7 g/dL (6.6-8.7)
[2024-03-16 15:03] LABS: Anion Gap 17.1 (5-19); Potassium 4.1 mmol/L (3.5-5.1); Troponin(5th) Baseline < 6 ng/L (0-15)
[2024-03-16] MEDS: albuterol 2.5 mg/3 mL Neb INHALATION (15:35)
[2024-03-16 15:37] VITALS: PULSE 85; RESP 18; O2SAT 95
[2024-03-16 15:45] VITALS: PULSE 90
[2024-03-16 16:20] VITALS: PULSE 86; O2SAT 100
== END 2024-03-16 16:34 | disposition home or self-care (01) ==
PROVIDERS: Emergency Provider Family Medicine
DX: J45.901 Unspecified asthma with (acute) exacerbation (principal); F17.220 Nicotine dependence, chewing tobacco, uncomplicated
CPT/HCPCS: 71045; 80053; 84484; 85025; 93005; 94640; 99285; J1100; J7613

== ENCOUNTER 2024-05-28 08:50 | Outpatient (CLI) | payer OTHER, SELFPAY ==
[2024-05-28 09:03] VITALS: PULSE 110; RESP 18; O2SAT 98
[2024-05-28] MEDS: albuterol 2.5 mg/3 mL Neb INHALATION (09:03)
== END 2024-05-28 08:51 | disposition home or self-care (01) ==
LOC: RT 08:52
PROVIDERS: Visit Provider Family Medicine
DX: Z02.71 Encounter for disability determination (principal); J45.909 Unspecified asthma, uncomplicated; R94.2 Abnormal results of pulmonary function studies
CPT/HCPCS: 94060; J7613

== ENCOUNTER 2024-06-26 18:35 | Emergency (ER) | payer BC, SELFPAY ==
[2024-06-26 18:44] VITALS: BP 128/86; PULSE 91; RESP 16; TEMP 36.8; O2SAT 96; BMI 29.9
[2024-06-26 19:18] VITALS: BP 139/94; PULSE 88; RESP 17; O2SAT 96
--- NOTE | 2024-06-26 19:20 | W.ED.ABDPA2 ---
HPI - Abdominal Pain General: Chief Complaint: Abdominal Pain Stated Complaint: hernia cant push back in anymore Time Seen by Provider: 06/26/24 19:12 History of Present Illness: Patient presents to the ER with a umbilical hernia that he is unable to reduce himself. Patient's had this hernia for a while and is on for sure how long it has been poking out the day. Patient does have some mild pain but is no nausea vomiting fever chills. Patient does but has been coughing a lot and thinks this may have caused it to protrude. Related Data Home Medications Medication Instructions Recorded Confirmed budesonide-formoterol HFA 160 2 inh inhalation BID 10/29/23 05/29/24 mcg-4.5 mcg/actuation aerosol inhaler (Symbicort) cetirizine 10 mg tablet 10 mg PO DAILY 10/29/23 05/29/24 esomeprazole magnesium 20 mg 20 mg PO DAILY 10/29/23 05/29/24 capsule,delayed release montelukast 10 mg tablet 10 mg PO DAILY 10/29/23 05/29/24 Previous Rx's Medication Instructions Recorded albuterol sulfate 90 mcg/actuation 2 inh inhalation Q6H PRN shortness 08/01/23 aerosol inhaler of breath or wheezing #8.5 grams ondansetron 8 mg disintegrating 8 mg PO .q6 PRN nausea and 02/29/24 tablet vomiting #14 tabs albuterol sulfate 90 mcg/actuation 2 inh inhalation Q4H PRN shortness 03/16/24 aerosol inhaler of breath or wheezing #18 grams prednisone 20 mg tablet 20 mg PO TID #15 tabs 03/16/24 buspirone 15 mg tablet 15 mg PO BID #180 tabs 05/29/24 citalopram 20 mg tablet 20 mg PO .morning #90 tabs 05/29/24 cyproheptadine 4 mg tablet 8 mg (2 x 4 mg) PO DIRECTED PRN 05/29/24 sexual activity #180 tabs quetiapine 100 mg tablet (Seroquel) 100 mg PO BEDTIME #90 tabs 05/29/24 Allergies Allergy/AdvReac Type Severity Reaction Status Date / Time Latex, Natural Rubber Allergy ALGY-Rash Verified 05/29/24 11:09 mustard Allergy ALGY-Anaphy Verified 05/29/24 11:09 laxis Review of Systems General: Reports: 10 or more systems reviewed and unremarkable except in HPI and below PFSH ED PFSH: Medical History Nicotine dependence, chewing tobacco, uncomplicated Personal history of traumatic brain injury Chronic post-traumatic stress disorder (PTSD) after combat Psychiatric care Physical Exam Const: COMMON NORMALS: no acute distress, average body habitus, patient oriented x3, no limitations, healthy appearing, alert and well nourished HENMT: COMMON NORMALS: normocephalic, atraumatic, hearing grossly normal bilaterally, external ears normal, Normal external nose present and moist oral mucous membranes HEAD & SCALP: normocephalic and atraumatic NOSE: Normal external nose present EXTERNAL EAR: Yes external ears normal Neck/C-Spine: COMMON NORMALS: no JVD Chest: COMMONS NORMALS: normal inspection of the chest and normal palpation of entire chest wall Resp: COMMON NORMALS: normal respiratory effort, No retractions, No use of accessory muscles and clear to auscultation bilaterally AUSCULTATION: clear to auscultation bilaterally Cardio: COMMON NORMALS: no JVD, regular rate, regular rhythm, S1 normal heart sound present, S2 normal heart sound present, No gallops present (Cardio), No clicks present (Cardio), No murmurs present (Cardio) and No rub (Cardio) RATE: regular rate RHYTHM: regular rhythm HEART SOUNDS: S1 normal heart sound present and S2 normal heart sound present GI: COMMON NORMALS: Soft to palpation, No hepatosplenomegaly present and no masses; negative for non-tender (Tender to palpate supraumbilical, hernia noted, hernia was easily reduced w) PALPATION: Yes Soft to palpation and Yes No hepatosplenomegaly present Neuro: COMMON NORMALS: patient oriented x3 SENSORIUM/ORIENTATION: Yes alert Course Vital Signs: Vital signs: Vital Signs Temperature 98.3 F 06/26/24 18:44 Pulse Rate 91 06/26/24 18:44 Respiratory Rate 16 06/26/24 18:44 Blood Pressure 128/86 06/26/24 18:44 Pulse Oximetry 96 06/26/24 18:44 MDM - Abdominal Pain Medical Decision Making Umbilical hernia was manually reduced. Patient feels much better. Patient will be discharged discharged home Medical Records I reviewed the patient's medical records. Lab Data I reviewed the patient's lab results. No radiology studies performed this visit Discharge Plan Discharge Patient Disposition: Home Clinical Impression: Hernia, umbilical Qualifiers: Obstruction and gangrene presence: without obstruction or gangrene Qualified Code(s): K42.9 - Umbilical hernia without obstruction or gangrene Condition: Stable Prescriptions: No Action cyproheptadine 4 mg tablet 8 mg PO DIRECTED PRN (Reason: sexual activity) Qty: 180 2RF Rx Instructions: May take two tablets 30 minutes prior to sexual activity buspirone 15 mg tablet 15 mg PO BID Qty: 180 2RF Rx Instructions: Take one tablet twice per day citalopram 20 mg tablet 20 mg PO .morning Qty: 90 2RF Rx Instructions: Take one tablet every morning quetiapine [Seroquel] 100 mg tablet 100 mg PO BEDTIME Qty: 90 2RF Rx Instructions: Take one tablet at bedtime albuterol sulfate 90 mcg/actuation HFA aerosol inhaler 2 inh inhalation Q6H PRN (Reason: shortness of breath or wheezing) Qty: 8.5 0RF cetirizine 10 mg tablet 10 mg PO DAILY montelukast 10 mg tablet 10 mg PO DAILY esomeprazole magnesium 20 mg capsule,delayed release(DR/EC) 20 mg PO DAILY Symbicort 160-4.5 mcg/actuation HFA aerosol inhaler 2 inh INHALATION BID ondansetron 8 mg tablet,disintegrating 8 mg PO .q6 PRN (Reason: nausea and vomiting) Qty: 14 0RF prednisone 20 mg tablet 20 mg PO TID Qty: 15 0RF Rx Instructions: 1 p.o. 3 times daily x3 days, 1 p.o. twice daily x2 days, 1 p.o. daily x2 days albuterol sulfate 90 mcg/actuation HFA aerosol inhaler 2 inh INHALATION Q4H PRN (Reason: shortness of breath or wheezing) Qty: 18 0RF Discharge Orders: Discharge ED (Routine); Ordered 06/26/24 Ordered By: Francis Cabrales Referrals: Arely Bell FNP [Primary Care Provider] - 1 week Patient Instructions: Umbilical Hernia (ED) Activity Restrictions/Additional Instructions: Thank you for choosing [facility] for your healthcare needs today. Please realize that you were seen in the emergency department and that we are providing you with an emergency medical screening exam and this may not be a complete and all exclusive of all testing and/or medical workup we may need to determine your element or severity of your illness. It is very important that you follow-up as instructed with your primary care provider or specialist for the additional evaluation and to discuss your medical treatment plan. You may return to the emergency department should you have concerns or if your condition changes or worsens in any way. Coding Level of Care Code ED Communicable Disease Specialist for Sammy [facility]
[2024-06-26 19:30] VITALS: BP 130/91; PULSE 87; RESP 16; O2SAT 95
[2024-06-26 19:42] VITALS: BP 130/91; PULSE 95; O2SAT 82
--- NOTE | 2024-06-27 07:23 | DCPLANNER ---
messaged gen surg for er f/u
== END 2024-06-26 19:30 | disposition home or self-care (01) ==
PROVIDERS: Emergency Provider Emergency Medicine; PCP Nurse Practitioner Family
DX: K42.9 Umbilical hernia without obstruction or gangrene (principal)
CPT/HCPCS: 99281

== ENCOUNTER 2025-01-14 21:09 | Emergency (ER) | payer BC, SELFPAY ==
[2025-01-14 21:35] VITALS: BP 126/87; PULSE 101; RESP 18; TEMP 36.7; O2SAT 95; BMI 29.9
[2025-01-14 22:25] VITALS: BP 136/95; PULSE 98; RESP 16; O2SAT 92
--- NOTE | 2025-01-14 22:52 | USR_ITS ---
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 Limited exam was focused on the right lower extremity veins. COMPARISON: CR (LOW EXM, ) 01/14/2025 11:43 PM FINDINGS: Right deep veins: Unremarkable. The common femoral, femoral, proximal profunda femoral and popliteal veins are patent without thrombus. Normal Doppler waveforms. Normal compressibility and/or augmentation response. Superficial veins: Greater saphenous vein at the saphenofemoral junction is patent without thrombus. Soft tissues: Unremarkable. US/[place] [id number] IMPRESSION: No evidence of deep vein thrombosis.
--- NOTE | 2025-01-14 22:52 | ED_ITS ---
Documented by User: NITIN Gay 01/15/25 00:11 HPI - Extremity Problem 2 General: Chief complaint: Extremity Injury, Lower Stated complaint: 1 week post op, possible clot, LOPEZ Time Seen by Provider: 01/14/25 22:17 Source: patient and family Mode of arrival: wheelchair Limitations: no limitations History of Present Illness: Patient is a 39-year-old male who is 1 week postop right total knee replacement by Dr. Sales at [facility] here for concerns of right knee pain, swelling, calf pain, and fevers. Patient states he underwent surgery last Monday. He states he was doing well following the surgery and went to physical therapy that . He and significant other feels like he started worsening over the weekend and he began running fevers of up to 102. They feel like pain and swelling to the knee and leg have worsened. He does not have any other symptoms to explain fever such as cough, shortness of breath, difficulty breathing, other URI-like symptoms. No burning with urination. MD Complaint: extremity pain, extremity swelling, joint swelling and joint pain Onset (ago): day(s) Pain Consistency: constant Location: right and knee Radiation: none Relieving factors: nothing Exacerbating factors: range of motion, weight bearing, walking and palpation Associated symptoms: Reports no associated symptoms and fever(s); Deny chest pain Context: recent surgery/procedure Related Data Home Medications ?Medication ?Instructions ?Recorded ?Confirmed budesonide-formoterol HFA 160 2 inh inhalation BID 06/1310/01/24 mcg-4.5 mcg/actuation aerosol inhaler (Symbicort) cetirizine 10 mg tablet 10 mg PO DAILY 10/29/2309/21 esomeprazole magnesium 20 mg 20 mg PO DAILY 10/29/23 0 10/01/24 capsule,delayed release montelukast 10 mg tablet 10 mg PO DAILY 10/29/2309/21 Previous Rx's ?Medication ?Instructions ?Recorded albuterol sulfate 90 mcg/actuation 2 inh inhalation Q6 H PRN shortness 08/01/23 aerosol inhaler of breath or wheezing #8.5 g robin ondansetron 8 mg disintegrating 8 mg PO .q6 PRN nausea and 02/29/24 tablet vomiting #14 tabs albuterol sulfate 90 mcg/actuation 2 inh inhalation Q4 H PRN shortness 03/16/24 aerosol inhaler of breath or wheezing #18 gr ams prednisone 20 mg tablet 20 mg PO TID #15 tabs buspirone 15 mg tablet 15 mg PO BID #180 tabs 05/29 citalopram 20 mg tablet 20 mg PO .morning #90 tabs 1 cyproheptadine 4 mg tablet 8 mg (2 x 4 mg) PO DIREC ANALISA PRN 05/29/24 sexual activity #180 tabs quetiapine 100 mg tablet (Seroquel) 100 mg PO .morning #90 tabs 10/01/24 Allergies Allergy/AdvReac Type Severity Reaction Status Date / Time Latex, Natural Rubber Allergy ALGY-Rash Verified 01/14/25 21:43 mustard Allergy ALGY-Anaphy Verified 01/14/25 21:43 laxis Review of Systems 2 Const: Reports: fever(s); Denies: chills, body aches, fatigue or malaise Card: Denies: chest pain Resp: Denies: dyspnea, productive cough, non-productive cough or chest congestion GI: Denies: abdominal pain : Denies: flank pain, dysuria or hematuria Musc: Reports: extremity pain, extremity swelling, joint pain, joint swelling and joint warmth; Denies: neck pain or back pain Neuro: Reports: headache(s); Denies: numbness in extremities, weakness in extremities or sensory changes PFSH ED 2 PFSH: Medical History Nicotine dependence, chewing tobacco, uncomplicated Personal history of traumatic brain injury Chronic post-traumatic stress disorder (PTSD) after combat Psychiatric care Physical Exam 2 Const: COMMON NORMALS: average body habitus, patient oriented x3, no limitations, healthy appearing, alert and well nourished GENERAL APPEARANCE: cooperative and in distress (appears uncomfortable secondary to pain) O RIENTATION/CONSCIOUSNESS: Yes awake, Yes oriented to person, Yes oriented to place and Yes oriented to time Resp: COMMON NORMALS: normal respiratory effort and clear to auscultation bilaterally AUSCULTATION: clear to auscultation bilaterally Cardio: COMMON NORMALS: regular rate and regular rhythm RATE: regular rate RHYTHM: regular rhythm GI: COMMON NORMALS: Normal to inspection, nondistended, normoactive bowel sounds present, Soft to palpation and non-tender PALPATION: Yes Soft to palpation : COMMON NORMALS: Yes no CVA tenderness BLADDER/KIDNEY EXAM: Yes no CVA tenderness Back/Pelvis: COMMON NORMALS: no CVA tenderness, thoracic and lumbar spine normal to inspection and no thoracic nor lumbar tenderness Extremity: COMMON NORMALS: capillary refill normal GENERAL: Yes normal exam except as noted RIGHT LOWER EXTREMITY: Yes knee joint and Yes lower leg O THER: pt with intact surgical site overlying R anterior knee; no discharge/wound dehiscence; no significant overlying cellulitis but there is edema and warmth as well as significant tenderness; he has swelling distally and calf pain that is probably normal one week post op; healing ecchymosis throughtout extremity Neuro: COMMON NORMALS: patient oriented x3, moves all extremities, no focal motor deficits and no sensory deficits noted SENSORIUM/ORIENTATION: Yes alert, Yes oriented to person, Yes oriented to place and Yes oriented to time Skin: NARRATIVE SKIN EXAM: see above Course 2 Vital Signs: Vital signs: Vital Signs Temperature 98.1 F 01/14/25 21:35 Pulse Rate 83 01/15/25 00:58 Respiratory Rate 16 01/15/25 00:58 Blood Pressure 127/88 01/15/25 00:58 Pulse Oximetry 92 01/15/25 00:58 Oxygen Delivery Me thod Room Air 01/15/25 00:58 MDM - Extremity (Nontraumatic) Medical Decision Making Patient is a 39-year-old male here for worsening right knee pain and swelling as well as reported fevers of up to 102 following a total knee replacement one week ago by Dr. Sales at [facility]. Patient states he was doing okay following the surgery but has seemed to worsen. He does not have any other symptoms to explain the fever. Clinically he has edema and warmth to the joint which could be normal postop however joint infection cannot definitively be ruled out. Vital signs have been stable here. He did get mildly hypoxic after IV morphine administration. His blood work showed a white count of 12.9. He has significant elevations to his inflammatory markers with an ESR of 80 and a CRP of 117. Does have mildly elevated LFTs. These have been elevated in the past to some degree. He is not having any abdominal pain. Chest x-ray showing no evidence of pneumonia. XR right knee showing some subcutaneous air-could be normal post op. UA is currently pending. US is in room now to rule out DVT. Medical Records I reviewed the patient's medical records. Lab Data I reviewed the patient's lab results. 01/14/25 23:10 01/14/25 23:10 Radiology Impressions Venous Duplex 01/14/25 22:52 IMPRESSION: No evidence of deep vein thrombosis. Knee X-Ray 01/14/25 23:29 IMPRESSION: Knee arthroplasty changes in place with postsurgical soft tissue changes. Chest X-Ray 01/14/25 23:31 IMPRESSION: No acute findings. Laboratory Results WBC 12.90 10^3/uL (3.29-11.43) H 01/14/25 23:10 RBC 4.53 10^6/uL (3.85-5.65) 01/14/25 23:10 Hgb 13.50 g/dL (11.27-16.99) 01/14/25 23:10 Hct 39.4 % (37-53) 01/14/25 23:10 MCV 87.0 fl (82-101) 01/14/25 23:10 MCH 29.8 pg (27-33) 01/14/25 23:10 MCHC 34.3 g/dL (30-55) 01/14/25 23:10 RDW 11.6 % (12.1-15.1) L 01/14/25 23:10 Plt Count 404 10^3/cmm (157-399) H 01/14/25 23:10 MPV 10.0 fL (7.4-10.4) 01/14/25 23:10 Neut % (Auto) 67.8 % 01/14/25 23:10 Lymph % (Auto) 16.3 % 01/14/25 23:10 [place] % (Auto) 9.2 % 01/14/25 23:10 Eos % (Auto) 5.3 % 01/14/25 23:10 Baso % (Auto) 0.6 % 01/14/25 23:10 Neut # (Auto) 8.75 10^3/uL (1.8-7.7) H 01/14/25 23:10 Lymph # (Auto) 2.1 10^3/uL (0.8-4.8) 01/14/25 23:10 [place] # (Auto) 1.2 10^3/uL (0.2-0.9) H 01/14/25 23:10 Eos # (Auto) 0.7 10^3/uL (0.0-0.8) 01/14/25 23:10 Baso # (Auto) 0.1 10^3/uL (0.0-0.1) 01/14/25 23:10 Nucleated RBC % (auto) 0 % 01/14/25 23:10 Nucleated RBCs # 0.0 /100WBC 01/14/25 23:10 ESR 80 mm/hr (0-10) H 01/14/25 23:10 Sodium 136 mmol/L (136-145) 01/14/25 23:10 Potassium 4.0 mmol/L (3.5-5.1) 01/14/25 23:10 Chloride 98 mmol/L (98-107) 01/14/25 23:10 Carbon Dioxide 24 mmol/L (22-29) 01/14/25 23:10 Anion Gap 18.0 (5-19) 01/14/25 23:10 BUN 18 mg/dL (6-20) 01/14/25 23:10 Creatinine 1.0 mg/dL (0.7-1.2) 01/14/25 23:10 GFR Calculation 82.8 mL/min (90-130) L 01/14/25 23:10 Glucose 124 mg/dL (65-115) H 01/14/25 23:10 Calculated Osmolality 285 mOsm/kg (285-295) 01/14/25 23:10 Lactic Acid 1.2 mmol/L (0.5-2.2) 01/14/25 23:10 Calcium 9.3 mg/dL (8.5-10.5) 01/14/25 23:10 Total Bilirubin 1.0 mg/dL (0.15-1.2) 01/14/25 23:10 AST 72 U/L (0-40) H 01/14/25 23:10 ALT 104 U/L (0-41) H 01/14/25 23:10 Alkaline Phosphatase 228 U/L (40-130) H 01/14/25 23:10 C-Reactive Protein 117.6 mg/L (0.0-4.9) H 01/14/25 23:10 Total Protein 7.4 g/dL (6.6-8.7) 01/14/25 23:10 Albumin 3.7 g/dL (3.5-5.2) 01/14/25 23:10 Globulin 3.7 g/dL (1.3-4.6) 01/14/25 23:10 Urine Color Cancelled 01/14/25 23:45 Urine Color Dark yellow (Yellow) A 01/14/25 23:45 Urine Appearance Cancelled 01/14/25 23:45 Urine Appearance Clear (CLEAR) 01/14/25 23:45 Urine pH 6.5 (5-7) 01/14/25 23:45 Urine pH Cancelled 01/14/25 23:45 Ur Specific [place] 1.022 (1.005-1.030) 01/14/25 23:45 Ur Specific [place] Cancelled 01/14/25 23:45 Urine Protein Cancelled 01/14/25 23:45 Urine Protein Trace (Negative) A 01/14/25 23:45 Urine Glucose (UA) Cancelled 01/14/25 23:45 Urine Glucose (UA) Negative (Normal) 01/14/25 23:45 Urine Ketones Cancelled 01/14/25 23:45 Urine Ketones Trace (Negative) 01/14/25 23:45 Urine Blood Cancelled 01/14/25 23:45 Urine Blood Negative (Negative) 01/14/25 23:45 Urine Nitrate Cancelled 01/14/25 23:45 Urine Nitrate Negative (Negative) 01/14/25 23:45 Urine Bilirubin 1+ (Negative) H 01/14/25 23:45 Urine Bilirubin Cancelled 01/14/25 23:45 Prot Sulfosalicylic Acd Cancelled 01/14/25 23:45 Urine Urobilinogen >=8.0 mg/dL (Negative) H 01/14/25 23:45 Urine Urobilinogen Cancelled 01/14/25 23:45 Ur Leukocyte Esterase Cancelled 01/14/25 23:45 Ur Leukocyte Esterase Trace (Negative) A 01/14/25 23:45 Urine RBC 0-2 /hpf (0-2) 01/14/25 23:45 Urine RBC Cancelled 01/14/25 23:45 Urine WBC 0-5 /hpf (0-5) 01/14/25 23:45 Urine WBC Cancelled 01/14/25 23:45 Ur Squamous Epith Cells 0-5 /hpf (0-5) 01/14/25 23:45 Ur Squamous Epith Cells Cancelled 01/14/25 23:45 Ur Transition Epith Cell Cancelled 01/14/25 23:45 Ur Renal Epithelial Cell Cancelled 01/14/25 23:45 Calcium Oxalate Crystal Cancelled 01/14/25 23:45 Uric Acid Crystals Cancelled 01/14/25 23:45 Triple Phos Crystals Cancelled 01/14/25 23:45 Other Crystals Cancelled 01/14/25 23:45 Amorphous Sediment Cancelled 01/14/25 23:45 Amorphous Sediment Not Reportable 01/14/25 23:45 Urine Bacteria Cancelled 01/14/25 23:45 Urine Bacteria None seen /hpf (NONE) 01/14/25 23:45 Hyaline Casts 0.81 /lpf 01/14/25 23:45 Hyaline Casts Cancelled 01/14/25 23:45 Fine Granular Casts Cancelled 01/14/25 23:45 Coarse Granular Casts Cancelled 01/14/25 23:45 RBC Casts Cancelled 01/14/25 23:45 Other Casts Cancelled 01/14/25 23:45 Urine Mucus Cancelled 01/14/25 23:45 Urine Trichomonas Cancelled 01/14/25 23:45 Urine Yeast Cancelled 01/14/25 23:45 Urine Sperm Cancelled 01/14/25 23:45 Ur Oval Fat Bodies Cancelled 01/14/25 23:45 XR interpretation done by ED provider, pending radiology final review Discharge Plan Discharge Patient Disposition: Xfer Short-Term Hosp Clinical Impression: Postoperative fever, Postoperative pain Condition: Stable Referrals: Arely Bell, PET COUNSELOR [Primary Care Provider, Unknown] Print Language: Rwandan Coding Level of Care Code ED Protein Scientist for Chg Fwd Documented by User: Racquel Tijerina MD 01/15/25 01:29 HPI - Extremity Problem 2 General: Chief complaint: Extremity Injury, Lower Stated complaint: 1 week post op, possible clot, LOPEZ Time Seen by Provider: 01/14/25 22:17 Related Data Home Medications ?Medication ?Instructions ?Recorded ?Confirmed budesonide-formoterol HFA 160 2 inh inhalation BID 06/1310/01/24 mcg-4.5 mcg/actuation aerosol inhaler (Symbicort) cetirizine 10 mg tablet 10 mg PO DAILY 10/29/2309/21 esomeprazole magnesium 20 mg 20 mg PO DAILY 10/29/23 0 10/01/24 capsule,delayed release montelukast 10 mg tablet 10 mg PO DAILY 10/29/2309/21 Previous Rx's ?Medication ?Instructions ?Recorded albuterol sulfate 90 mcg/actuation 2 inh inhalation Q6 H PRN shortness 08/01/23 aerosol inhaler of breath or wheezing #8.5 g robin ondansetron 8 mg disintegrating 8 mg PO .q6 PRN nausea and 02/29/24 tablet vomiting #14 tabs albuterol sulfate 90 mcg/actuation 2 inh inhalation Q4 H PRN shortness 03/16/24 aerosol inhaler of breath or wheezing #18 gr ams prednisone 20 mg tablet 20 mg PO TID #15 tabs buspirone 15 mg tablet 15 mg PO BID #180 tabs 05/29 citalopram 20 mg tablet 20 mg PO .morning #90 tabs 1 cyproheptadine 4 mg tablet 8 mg (2 x 4 mg) PO DIREC ANALISA PRN 05/29/24 sexual activity #180 tabs quetiapine 100 mg tablet (Seroquel) 100 mg PO .morning #90 tabs 10/01/24 Allergies Allergy/AdvReac Type Severity Reaction Status Date / Time Latex, Natural Rubber Allergy ALGY-Rash Verified 01/14/25 21:43 mustard Allergy ALGY-Anaphy Verified 01/14/25 21:43 laxis PFSH ED 2 PFSH: Medical History Nicotine dependence, chewing tobacco, uncomplicated Personal history of traumatic brain injury Chronic post-traumatic stress disorder (PTSD) after combat Psychiatric care Course 2 Vital Signs: Vital signs: Vital Signs Temperature 98.1 F 01/14/25 21:35 Pulse Rate 83 01/15/25 00:58 Respiratory Rate 16 01/15/25 00:58 Blood Pressure 127/88 01/15/25 00:58 Pulse Oximetry 92 01/15/25 00:58 Oxygen Delivery Me thod Room Air 01/15/25 00:58 MDM - Extremity (Nontraumatic) Medical Decision Making Patient is a 39-year-old male here for worsening right knee pain and swelling as well as reported fevers of up to 102 following a total knee replacement one week ago by Dr. Sales at [facility]. Patient states he was doing okay following the surgery but has seemed to worsen. He does not have any other symptoms to explain the fever. Clinically he has edema and warmth to the joint which could be normal postop however joint infection cannot definitively be ruled out. Vital signs have been stable here. He did get mildly hypoxic after IV morphine administration. His blood work showed a white count of 12.9. He has significant elevations to his inflammatory markers with an ESR of 80 and a CRP of 117. Does have mildly elevated LFTs. These have been elevated in the past to some degree. He is not having any abdominal pain. Chest x-ray showing no evidence of pneumonia. XR right knee showing some subcutaneous air-could be normal post op. UA is currently pending. US is in room now to rule out DVT. Patient care transitioned me to shift change. Postop fever. Has some leukocytosis with significant elevation in ESR and CRP. Ultrasound was negative for DVT. Urinalysis negative for infection. Chest x-ray negative for infection. No cough. He had temps to 102. Reading for orthopedics. I spoke with the orthopod on-call at [facility] who recommended transfer to the ER and admission to the hospitalist service. Also recommends holding on antibiotics for now. I spoke with the ER doctor and they have accepted the patient to the emergency room by ambulance. Lab Data 01/14/25 23:10 01/14/25 23:10 Radiology Impressions Venous Duplex 01/14/25 22:52 IMPRESSION: No evidence of deep vein thrombosis. Knee X-Ray 01/14/25 23:29 IMPRESSION: Knee arthroplasty changes in place with postsurgical soft tissue changes. Chest X-Ray 01/14/25 23:31 IMPRESSION: No acute findings. Laboratory Results WBC 12.90 10^3/uL (3.29-11.43) H 01/14/25 23:10 RBC 4.53 10^6/uL (3.85-5.65) 01/14/25 23:10 Hgb 13.50 g/dL (11.27-16.99) 01/14/25 23:10 Hct 39.4 % (37-53) 01/14/25 23:10 MCV 87.0 fl (82-101) 01/14/25 23:10 MCH 29.8 pg (27-33) 01/14/25 23:10 MCHC 34.3 g/dL (30-55) 01/14/25 23:10 RDW 11.6 % (12.1-15.1) L 01/14/25 23:10 Plt Count 404 10^3/cmm (157-399) H 01/14/25 23:10 MPV 10.0 fL (7.4-10.4) 01/14/25 23:10 Neut % (Auto) 67.8 % 01/14/25 23:10 Lymph % (Auto) 16.3 % 01/14/25 23:10 [place] % (Auto) 9.2 % 01/14/25 23:10 Eos % (Auto) 5.3 % 01/14/25 23:10 Baso % (Auto) 0.6 % 01/14/25 23:10 Neut # (Auto) 8.75 10^3/uL (1.8-7.7) H 01/14/25 23:10 Lymph # (Auto) 2.1 10^3/uL (0.8-4.8) 01/14/25 23:10 [place] # (Auto) 1.2 10^3/uL (0.2-0.9) H 01/14/25 23:10 Eos # (Auto) 0.7 10^3/uL (0.0-0.8) 01/14/25 23:10 Baso # (Auto) 0.1 10^3/uL (0.0-0.1) 01/14/25 23:10 Nucleated RBC % (auto) 0 % 01/14/25 23:10 Nucleated RBCs # 0.0 /100WBC 01/14/25 23:10 ESR 80 mm/hr (0-10) H 01/14/25 23:10 Sodium 136 mmol/L (136-145) 01/14/25 23:10 Potassium 4.0 mmol/L (3.5-5.1) 01/14/25 23:10 Chloride 98 mmol/L (98-107) 01/14/25 23:10 Carbon Dioxide 24 mmol/L (22-29) 01/14/25 23:10 Anion Gap 18.0 (5-19) 01/14/25 23:10 BUN 18 mg/dL (6-20) 01/14/25 23:10 Creatinine 1.0 mg/dL (0.7-1.2) 01/14/25 23:10 GFR Calculation 82.8 mL/min (90-130) L 01/14/25 23:10 Glucose 124 mg/dL (65-115) H 01/14/25 23:10 Calculated Osmolality 285 mOsm/kg (285-295) 01/14/25 23:10 Lactic Acid 1.2 mmol/L (0.5-2.2) 01/14/25 23:10 Calcium 9.3 mg/dL (8.5-10.5) 01/14/25 23:10 Total Bilirubin 1.0 mg/dL (0.15-1.2) 01/14/25 23:10 AST 72 U/L (0-40) H 01/14/25 23:10 ALT 104 U/L (0-41) H 01/14/25 23:10 Alkaline Phosphatase 228 U/L (40-130) H 01/14/25 23:10 C-Reactive Protein 117.6 mg/L (0.0-4.9) H 01/14/25 23:10 Total Protein 7.4 g/dL (6.6-8.7) 01/14/25 23:10 Albumin 3.7 g/dL (3.5-5.2) 01/14/25 23:10 Globulin 3.7 g/dL (1.3-4.6) 01/14/25 23:10 Urine Color Cancelled 01/14/25 23:45 Urine Color Dark yellow (Yellow) A 01/14/25 23:45 Urine Appearance Cancelled 01/14/25 23:45 Urine Appearance Clear (CLEAR) 01/14/25 23:45 Urine pH 6.5 (5-7) 01/14/25 23:45 Urine pH Cancelled 01/14/25 23:45 Ur Specific [place] 1.022 (1.005-1.030) 01/14/25 23:45 Ur Specific [place] Cancelled 01/14/25 23:45 Urine Protein Cancelled 01/14/25 23:45 Urine Protein Trace (Negative) A 01/14/25 23:45 Urine Glucose (UA) Cancelled 01/14/25 23:45 Urine Glucose (UA) Negative (Normal) 01/14/25 23:45 Urine Ketones Cancelled 01/14/25 23:45 Urine Ketones Trace (Negative) 01/14/25 23:45 Urine Blood Cancelled 01/14/25 23:45 Urine Blood Negative (Negative) 01/14/25 23:45 Urine Nitrate Cancelled 01/14/25 23:45 Urine Nitrate Negative (Negative) 01/14/25 23:45 Urine Bilirubin 1+ (Negative) H 01/14/25 23:45 Urine Bilirubin Cancelled 01/14/25 23:45 Prot Sulfosalicylic Acd Cancelled 01/14/25 23:45 Urine Urobilinogen >=8.0 mg/dL (Negative) H 01/14/25 23:45 Urine Urobilinogen Cancelled 01/14/25 23:45 Ur Leukocyte Esterase Cancelled 01/14/25 23:45 Ur Leukocyte Esterase Trace (Negative) A 01/14/25 23:45 Urine RBC 0-2 /hpf (0-2) 01/14/25 23:45 Urine RBC Cancelled 01/14/25 23:45 Urine WBC 0-5 /hpf (0-5) 01/14/25 23:45 Urine WBC Cancelled 01/14/25 23:45 Ur Squamous Epith Cells 0-5 /hpf (0-5) 01/14/25 23:45 Ur Squamous Epith Cells Cancelled 01/14/25 23:45 Ur Transition Epith Cell Cancelled 01/14/25 23:45 Ur Renal Epithelial Cell Cancelled 01/14/25 23:45 Calcium Oxalate Crystal Cancelled 01/14/25 23:45 Uric Acid Crystals Cancelled 01/14/25 23:45 Triple Phos Crystals Cancelled 01/14/25 23:45 Other Crystals Cancelled 01/14/25 23:45 Amorphous Sediment Cancelled 01/14/25 23:45 Amorphous Sediment Not Reportable 01/14/25 23:45 Urine Bacteria Cancelled 01/14/25 23:45 Urine Bacteria None seen /hpf (NONE) 01/14/25 23:45 Hyaline Casts 0.81 /lpf 01/14/25 23:45 Hyaline Casts Cancelled 01/14/25 23:45 Fine Granular Casts Cancelled 01/14/25 23:45 Coarse Granular Casts Cancelled 01/14/25 23:45 RBC Casts Cancelled 01/14/25 23:45 Other Casts Cancelled 01/14/25 23:45 Urine Mucus Cancelled 01/14/25 23:45 Urine Trichomonas Cancelled 01/14/25 23:45 Urine Yeast Cancelled 01/14/25 23:45 Urine Sperm Cancelled 01/14/25 23:45 Ur Oval Fat Bodies Cancelled 01/14/25 23:45 Discharge Plan Discharge Patient Disposition: Xfer Short-Term Hosp Clinical Impression: Postoperative fever, Postoperative pain Condition: Stable Referrals: Arely Bell FNP [Primary Care Provider, Unknown] Print Language: Rwandan Coding Level of Care Code ED Protein Scientist for Sammy Chilel
[2025-01-14] MEDS: morphine 4 mg/mL SDV 1 mL IVP (23:17)
[2025-01-14] MEDS: ondansetron 2 mg/ML SDV 2 mL 4 MG IVP (23:18)
[2025-01-14 23:23] LABS: Erythrocyte Sedimentation Rate 80 mm/hr (0-10)
[2025-01-14 23:25] LABS: Basophils # 0.1 10^3/uL (0.0-0.1); Basophils % 0.6 %; Eosinophils # 0.7 10^3/uL (0.0-0.8); Eosinophils % 5.3 %; Hematocrit 39.4 % (37-53); Lymphocytes # 2.1 10^3/uL (0.8-4.8); Lymphocytes % 16.3 %; Mean Corpuscular HGB Conc 34.3 g/dL (30-55); Mean Corpuscular Hemoglobin 29.8 pg (27-33); Monocytes # 1.2 10^3/uL (0.2-0.9); Monocytes % 9.2 %; Neutrophils # 8.75 10^3/uL (1.8-7.7); Neutrophils % 67.8 %; Nucleated Red Blood Cells % 0 %; Platelet Count 404 10^3/cmm (157-399); Red Blood Count 4.53 10^6/uL (3.85-5.65); Red Cell Distribution Width 11.6 % (12.1-15.1)
--- NOTE | 2025-01-14 23:29 | XRR_ITS ---
PROCEDURE INFORMATION: Exam: XR Right Knee Exam date and time: 01/14/2025 11:43 PM Age: 39 years old Clinical indication: Pain; Edema; Yes, it is localized; Prior surgery; Surgery date: 3-7 days post-operative; Surgery type: Right knee replacement; Additional info: One wk post op; Fevers; Pain/edema TECHNIQUE: Imaging protocol: Radiologic exam of the right knee. Views: 3 views. COMPARISON: No relevant prior studies available. FINDINGS: Bones/joints: Knee arthroplasty changes in place with postsurgical soft tissue changes. Soft tissues: See Bones/joints finding. XR/XR knee RT 3V* [id number] IMPRESSION: Knee arthroplasty changes in place with postsurgical soft tissue changes.
[2025-01-14 23:30] VITALS: BP 136/95; PULSE 89; RESP 16; O2SAT 91
--- NOTE | 2025-01-14 23:31 | XRR_ITS ---
PROCEDURE INFORMATION: Exam: XR Chest Exam date and time: 01/14/2025 11:47 PM Age: 39 years old Clinical indication: Fever; Knee replacement x1 week ago; Additional info: Post op fever TECHNIQUE: Imaging protocol: Radiologic exam of the chest. Views: 1 view. COMPARISON: CR XR chest 1V portable [id number] 03/16/2024 2:51 PM FINDINGS: Lungs: Unremarkable. No consolidation. Pleural spaces: Unremarkable. No pleural effusion. No pneumothorax. Heart/Mediastinum: Unremarkable. No cardiomegaly. Bones/joints: Unremarkable. XR/XR chest 1V portable [id number] IMPRESSION: No acute findings.
[2025-01-14 23:39] LABS: Alanine Aminotransferase 104 U/L (0-41); Albumin Level 3.7 g/dL (3.5-5.2); Alkaline Phosphatase 228 U/L (40-130); Aspartate Amino Transferase 72 U/L (0-40); Blood Urea Nitrogen 18 mg/dL (6-20); C Reactive Protein 117.6 mg/L (0.0-4.9); Calcium 9.3 mg/dL (8.5-10.5); Carbon Dioxide 24 mmol/L (22-29); Chloride 98 mmol/L (98-107); Creatinine Clr Calc Pharmacy 116.9289; Globulin 3.7 g/dL (1.3-4.6); Glomerular Filtration Rate 82.8 mL/min (90-130); Glucose 124 mg/dL (65-115); Osmolality Calculated 285 mOsm/kg (285-295); Sodium 136 mmol/L (136-145); Total Protein 7.4 g/dL (6.6-8.7)
[2025-01-14 23:40] LABS: Lactic Sepsis W/Reflex 1.2 mmol/L (0.5-2.2)
[2025-01-15] VITALS: BP 136/84; PULSE 84; RESP 16; O2SAT 91
[2025-01-15] MEDS: orphenadrine 30 mg/mL Inj 2 mL 60 MG IVP (00:06)
[2025-01-15 00:08] LABS: Bilirubin Urine 1+ (Negative); Blood Urine Negative (Negative); Glucose Urine UA Negative (Normal); Ketones Urine Trace (Negative); Leukocyte Esterase Urine Trace (Negative); Nitrate Urine Negative (Negative); Protein Urine Trace (Negative); Specific Gravity, Urine 1.022 (1.005-1.030); Urine Appearance Clear (CLEAR); Urine Color Dark Yellow (Yellow); Urobilinogen Urine >=8.0 mg/dL (Negative); pH Urine 6.5 (5-7)
[2025-01-15 00:10] LABS: Add Urine Microscopic? YES; Bacteria Urine None Seen /hpf; Hyaline Casts Urine 0.81 /lpf; RBC Urine 0-2 /hpf (0-2); Squamous Epithelial Cell Urine 0-5 /hpf (0-5); WBC Urine 0-5 /hpf (0-5)
[2025-01-15 00:58] VITALS: BP 127/88; PULSE 83; RESP 16; O2SAT 92
[2025-01-15] MEDS: morphine 4 mg/mL SDV 1 mL IVP (02:11)
[2025-01-15 02:28] VITALS: BP 132/87; PULSE 78; RESP 16; O2SAT 92
== END 2025-01-15 02:30 | disposition short-term general hospital (02) ==
PROVIDERS: Physician Assistant; Emergency Provider Emergency Medicine; PCP Nurse Practitioner Family
DX: R50.82 Postprocedural fever (principal); G89.18 Other acute postprocedural pain; M25.561 Pain in right knee; Z96.651 Presence of right artificial knee joint
CPT/HCPCS: 71045; 73562; 80053; 81001; 83605; 85025; 85651; 86140; 93971; 96374; 96375; 96376; 99284; J2270; J2360; J2405

== ENCOUNTER → 2025-03-13 10:48 | Outpatient (BNVA) | payer OTHER, SELFPAY | PROVIDERS: PCP Nurse Practitioner Family; Visit Provider Nurse Practitioner Psychiatric/Mental Health | DX: F41.1 Generalized anxiety disorder (principal); F33.1 Major depressive disorder, recurrent, moderate; F43.12 Post-traumatic stress disorder, chronic; Z79.899 Other long term (current) drug therapy | CPT/HCPCS: 80061; 83036; 83721 ==

== ENCOUNTER 2025-03-18 08:39 | Outpatient (CLI) | payer OTHER, SELFPAY ==
[2025-03-18 08:57] VITALS: PULSE 66; RESP 18; O2SAT 97
== END 2025-03-18 08:40 | disposition home or self-care (01) ==
LOC: RT 08:40
PROVIDERS: PCP Nurse Practitioner Family; Visit Provider Family Medicine
DX: Z02.71 Encounter for disability determination (principal); R06.02 Shortness of breath; J98.8 Other specified respiratory disorders
CPT/HCPCS: 94060; J7613

== ENCOUNTER 2025-03-18 09:33 | Emergency (ER) | payer BC, SELFPAY ==
[2025-03-18 09:38] VITALS: BP 131/83; PULSE 85; TEMP 36.6; O2SAT 94
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
--- OUTSIDE RECORDS SUMMARY | 2025-03-18 09:40 | XMS_ITS | Encounter Summary ---
Author Organization [facility] Address [address] [place] [address] Care Team Providers Care Controlled Area Checker Name Role Phone Non-Staff, Physician Primary Care Provider Unava ilable Encounter Details Date Type Department Care Team (Latest Contact Info) Description 08/18/2000 Outpatient Historical [facility] [place] [address] [place] [id number] Jd Newell, NO ADDRESS ON FILE Unspecified sinusitis (chronic) (Primary Dx); Cellulitis and abscess of toe, unspecified Social History Tobacco Use Types Packs/Day Years Used Date Smoking Tobacco: Never Assessed Sex and Gender Information Value Date Recorded Sex Assigned at Not on file 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
--- OUTSIDE RECORDS SUMMARY | 2025-03-18 09:40 | XMS_ITS | Encounter Summary ---
Author Organization [facility] Address [address] [place] [address] Care Team Providers Care Canteen Attendant Name Role Phone Non-Staff, Physician Primary Care Provider Unava ilable Encounter Details Date Type Department Care Team (Latest Contact Info) Description 10/08/2002 Outpatient Historical [facility] Family Medicine- [place] [address] [place] [address] Jd Newell DO NO ADDRESS ON FILE JOINT PAIN-L/LEG (Primary Dx) Social History Tobacco Use Types Packs/Day Years Used Date Smoking Tobacco: Never Assessed Sex and Gender Information Value Date Recorded Sex Assigned at Not on file 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
--- OUTSIDE RECORDS SUMMARY | 2025-03-18 09:40 | XMS_ITS | Encounter Summary ---
Author Organization [facility] Address [address] [place] [address] Care Team Providers Care Lawn Sprinkler Servicer Name Role Phone Non-Staff, Physician Primary Care Provider Unava ilable Encounter Details Date Type Department Care Team (Latest Contact Info) Description 07/13/1998 Outpatient Historical [facility] Mynor Morrison MD NO ADDRESS ON FILE Chondromalacia patellae (Primary Dx) Social History Tobacco Use Types Packs/Day Years Used Date Smoking Tobacco: Never Assessed Sex and Gender Information Value Date Recorded Sex Assigned at Not on file Legal Sex Male 3:44 AM NP Gender Identity Not on file Sexual Orientation Not on file documented as of this encounter Plan of Treatment Not on file documented as of this encounter Visit Diagnoses Diagnosis Chondromalacia patellae- Primary Chondromalacia of patella documented in this encounter Care Teams Lawn Sprinkler Servicer Relationship Specialty Start Date End Date Non-Staff, Physician NO ADDRESS ON FILE PCP - General 07/22/20 documented as of this encounter
--- OUTSIDE RECORDS SUMMARY | 2025-03-18 09:40 | XMS_ITS | Encounter Summary ---
Author Organization [facility] Address [address] [place] [address] Care Team Providers Care Medical Lab Specialist Name Role Phone Non-Staff, Physician Primary Care Provider Unava ilable Encounter Details Date Type Department Care Team (Latest Contact Info) Description 02/23/2001 Outpatient Historical [facility] Family Medicine [place] [address] [facility] [address] [place] [address] Aldair Stein MD [address] [phone] Ingrowing nail (Primary Dx) Social History Tobacco Use Types Packs/Day Years Used Date Smoking Tobacco: Never Assessed Sex and Gender Information Value Date Recorded Sex Assigned at Not on file 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
--- OUTSIDE RECORDS SUMMARY | 2025-03-18 09:40 | XMS_ITS | Clinical Summary ---
Author Organization [facility] Address [address] [place] [address] Care Team Providers Care Refrigerator Mover Name Role Phone Non-Staff, Physician Primary Care Provider Unava ilable Allergies Active Allergy Reactions Criticality Noted Date Comments Latex Swelling Low 03/13/2012 Unclassified Drug Shortness of Breath/Wheezing High 08/28/2012 Medications busPIRone (BUSPAR) 5 mg tablet Take 25 mg by mouth 2 times daily . Active ibuprofen (MOTRIN) 800 mg tabletIndication s:Fever, unspecified fever cause Take 1 Tablet (800 mg) by mouth every 8 hours as needed for Pain, Mild Do not take until well.. 30 Tablet 0 6 Active busPIRone (BUSPAR) 5 mg tablet Take 1 Tablet (5 mg) by mouth 2 times daily as needed (anxiety). 60 Tablet 1 9 Active predniSONE (DELTASONE) 10 mg tablet 3 per day for 3 days then 2 per day for 3 days then 1 per day for 3 day 18 Tablet 9 Active nystatin (MYCOSTATIN) 100,000 unit/gram Cream Apply to affected area 2 times daily. 30 Gram 1 9 Active Active Problems Problem Noted Date Diagnosed Date Chewing tobacco dependence 06/18/2015 Knee pain 11/21/2013 Depression with anxiety 11/15/2012 PTSD (post-traumatic stress disorder) 11/15/2012 DDD (degenerative disc disease), lumbar 11/16/19 13 Immunizations Immunization Administration Dates Next Due Influenza Seasonal Unspecified Formulation IM Family History Relation Name Status Comments Father Alive Mother Alive Social History Tobacco Use Types Packs/Day Years Used Date Smoking Tobacco: Former Cigars Q uit: 08/28/2009 Smokeless Tobacco: Current Chew Tobacco Cessation:Ready to Q uit: No Alcohol Use Standard Drinks/Week Comments Yes 0 (1 standard drink = 0.6 oz pur e alcohol) occasionally Sex and Gender Information Value Date Recorded Sex Assigned at Not on file 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 Sex 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 Gender Identity Not on file Sexual Orientation Not on file Occupation Industry Job Start Date Job End Date Not on file Not on file Not on file Not on file Not on file Not on file Not on file Not on file Last Filed Vital Signs Vital Sign Reading Time Taken Comments Blood Pressure 101/80 07/24/2019 4:25 PM SECURITY SUPERVISOR Pulse 96 07/24/2019 4:25 PM SECURITY SUPERVISOR Temperature 36.7 C (98.1 F) 07/24/2019 4:25 PM SECURITY SUPERVISOR Respiratory Rate 24 07/24/2019 4:25 PM SECURITY SUPERVISOR Oxygen Saturation 95% 07/24/2019 4:25 PM SECURITY SUPERVISOR Inhaled Oxygen Concentration - - Weight 78.7 kg (173 lb 9.6 oz) 07/24/2019 4:25 P M SECURITY SUPERVISOR Height 180.3 cm (5' 11 ) 07/24/2019 4:25 PM SECURITY SUPERVISOR Body Mass Index 24.21 07/24/2019 4:25 PM SECURITY SUPERVISOR Plan of Treatment Health Maintenance Due Date Last Done Comments HPV VACCINES (1 - Male 3-dose series) 1999 DTAP/TDAP/TD VACCINES (1 - Tdap) 2003 HEPATITIS B VACCINES (1 of 3 - 19+ 3-dose series) 2003 INFLUENZA VACCINE (#1) 2025 07/24/2019, 2016 Insurance MEDICARE PART A AND B Advance Directives For more information, please contact: [phone] * Full Code (Latest Code Status on File) Date Activated Date Inactivated Comments 12/16/2013 8:01 AM 12/16/2013 2:55 PM Care Teams Refrigerator Mover Relationship Specialty Start Date End Date Non-Staff, Physician NO ADDRESS ON FILE PCP - General 07/22/20
--- OUTSIDE RECORDS SUMMARY | 2025-03-18 09:40 | XMS_ITS | Encounter Summary ---
Author Organization [facility] Address [address] [place] [address] Care Team Providers Care Preparation Center Coordinator Name Role Phone Non-Staff, Physician Primary Care Provider Unava ilable Encounter Details Date Type Department Care Team (Latest Contact Info) Description 09/04/2000 Outpatient Historical [facility] Family Medicine- [place] [address] 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
--- OUTSIDE RECORDS SUMMARY | 2025-03-18 09:40 | XMS_ITS | Encounter Summary ---
Author Organization [facility] Address [address] [place] [address] Care Team Providers Care Java Software Architect Name Role Phone Non-Staff, Physician Primary Care Provider Unava ilable Encounter Details Date Type Department Care Team (Latest Contact Info) Description 09/08/2003 Outpatient Historical [facility] Family Medicine [place] [address] [facility] [address] [place] [address] Aldair Stein MD [address] [address] ACUTE BRONCHITIS (Primary Dx); ACUTE PHARYNGITIS; ACUTE SINUSITIS NOS Social History Tobacco Use Types Packs/Day Years Used Date Smoking Tobacco: Never Assessed Sex and Gender Information Value Date Recorded Sex Assigned at Not on file 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
--- OUTSIDE RECORDS SUMMARY | 2025-03-18 09:40 | XMS_ITS | Encounter Summary ---
Author Organization [facility] Address [address] [place] [address] Care Team Providers Care Retail Wireless Sales Consultant Name Role Phone Non-Staff, Physician Primary Care Provider Unava ilable Encounter Details Date Type Department Care Team (Latest Contact Info) Description 10/15/2002 Outpatient Historical [facility] Family Medicine- [place] [address] [place] [address] Jd Newell DO NO ADDRESS ON FILE JOINT PAIN-L/LEG (Primary Dx) Social History Tobacco Use Types Packs/Day Years Used Date Smoking Tobacco: Never Assessed Sex and Gender Information Value Date Recorded Sex Assigned at Not on file 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
--- OUTSIDE RECORDS SUMMARY | 2025-03-18 09:40 | XMS_ITS | Encounter Summary ---
Author Organization [facility] Address [address] [place] [address] Care Team Providers Care Sonography Technologist Name Role Phone Non-Staff, Physician Primary Care Provider Unava ilable Encounter Details Date Type Department Care Team (Late st Contact Info) Description 11/12/2003 Outpatient Historical [facility] Family Medicine- [place] [address] [place] [address] Dayami Eli, AILIN NO ADDRESS ON FILE Social History Tobacco Use Types Packs/Day Years Used Date Smoking Tobacco: Never Assessed Sex and Gender Information Value Date Recorded Sex Assigned at Not on file Legal Sex Male 3:44 AM RN RECOVERY Gender Identity Not on file Sexual Orientation Not on file documented as of this encounter Plan of Treatment Not on file documented as of this encounter Visit Diagnoses Not on filedocumented in this encounter Care Teams Sonography Technologist Relationship Specialty Start Date End Date Non-Staff, Physician NO ADDRESS ON FILE PCP - General 07/22/20 documented as of this encounter
--- OUTSIDE RECORDS SUMMARY | 2025-03-18 09:40 | XMS_ITS | Encounter Summary ---
Author Organization [facility] Address [address] [place] [address] Care Team Providers Care Death Surveys Coder Name Role Phone Non-Staff, Physician Primary Care Provider Unava ilable Encounter Details Date Type Department Care Team (Late st Contact Info) Description 07/29/2002 Outpatient Historical [facility] Family Medicine- [place] [address] [place] [address] Aleida Hopkins MD NO ADDRESS ON FILE Social History Tobacco Use Types Packs/Day Years Used Date Smoking Tobacco: Never Assessed Sex and Gender Information Value Date Recorded Sex Assigned at Not on file 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
--- OUTSIDE RECORDS SUMMARY | 2025-03-18 09:40 | XMS_ITS | Encounter Summary ---
Author Organization [facility] Address [address] [place] [address] Care Team Providers Care Manager Parking Name Role Phone Non-Staff, Physician Primary Care Provider Unava ilable Encounter Details Date Type Department Care Team (Latest Contact Info) Description 02/22/2001 Outpatient Historical [facility] Family Medicine [place] [address] [facility] [address] [place] [address] Aldair Stein MD [address] [phone] Ingrowing nail (Primary Dx) Social History Tobacco Use Types Packs/Day Years Used Date Smoking Tobacco: Never Assessed Sex and Gender Information Value Date Recorded Sex Assigned at Not on file 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
--- OUTSIDE RECORDS SUMMARY | 2025-03-18 09:40 | XMS_ITS | Encounter Summary ---
Author Organization [facility] Address [address] [place] [address] Care Team Providers Care Buyer Internship Name Role Phone Non-Staff, Physician Primary Care Provider Unava ilable Encounter Details Date Type Department Care Team (Latest Contact Info) Description 07/29/2002 Outpatient Historical [facility] Family Medicine- [place] [address] [place] [address] Aleida Hopkins MD NO ADDRESS ON FILE ACUTE PHARYNGITIS (Primary Dx) Social History Tobacco Use Types Packs/Day Years Used Date Smoking Tobacco: Never Assessed Sex and Gender Information Value Date Recorded Sex Assigned at Not on file 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
--- OUTSIDE RECORDS SUMMARY | 2025-03-18 09:40 | XMS_ITS | Encounter Summary ---
Author Organization [facility] Address [address] [place] [address] Care Team Providers Care Motorcycle Builder Name Role Phone Non-Staff, Physician Primary Care Provider Unava ilable Encounter Details Date Type Department Care Team (Latest Contact Info) Description 05/20/2003 Outpatient Historical [facility] Family Medicine [place] [address] [facility] [address] [place] [address] Aldair Stein MD [address] [address] SPRAIN OF KNEE & LEG NOS (Primary Dx) Social History Tobacco Use Types Packs/Day Years Used Date Smoking Tobacco: Never Assessed Sex and Gender Information Value Date Recorded Sex Assigned at Not on file 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
--- OUTSIDE RECORDS SUMMARY | 2025-03-18 09:40 | XMS_ITS | Clinical Summary ---
Author Organization [facility] Address [address] [place] [address] Phone Care Team Providers Care Photostat Operator Name Role Phone Non-Staff, Physician Primary Care Provider Unava ilable Allergies Active Allergy Reactions Criticality Noted Date Comments Latex Swelling Low 03/13/2012 Unclassified Drug Shortness of Breath/Wheezing High 08/28/2012 Medications busPIRone (BUSPAR) 5 mg tablet Take 1 Tablet (5 mg) by mouth 2 times daily as needed (anxiety). 60 Tablet 1 07/24/2019 Active ibuprofen (MOTRIN) 800 mg tabletIndication s:Fever, unspecified fever cause Take 1 Tablet (800 mg) by mouth every 8 hours as needed for Pain, Mild Do not take until well.. 30 Tablet 0 04/27/2016 Active Active Problems Problem Noted Date Diagnosed Date Inhalation injury due to chemical 06/24/2022 Acute respiratory distress 06/23/2022 Reactive airway disease with acute exacerbation 06/23/2022 Chewing tobacco dependence 06/18/2015 Knee pain 11/21/2013 Depression with anxiety 11/15/2012 DDD (degenerative disc disease), lumbar 11/16/19 13 PTSD (post-traumatic stress disorder) 11/15/2012 Immunizations Immunization Administration Dates Next Due Influenza Seasonal Unspecified Formulation IM Family History Relation Name Status Comments Father Alive Mother Alive Social History Tobacco Use Types Packs/Day Years Used Date Smoking Tobacco: Unknown Smokeless Tobacco: Current Tobacco Cessation:Counseling Given: Not Answered Alcohol Use Standard Drinks/Week Comments Yes 0 (1 standard drink = 0.6 oz pur e alcohol) Sex and Gender Information Value Date Recorded Sex Assigned at Not on file Legal Sex Male 6:53 AM ESCROW SECRETARY Gender Identity Not on file Sexual Orientation Not on file Last Filed Vital Signs Vital Sign Reading Time Taken Comments Blood Pressure 109/74 06/24/2022 12:00 PM CDT Pulse 111 06/24/2022 12:52 PM CDT Temperature 36.5 C (97.7 F) 06/24/2022 12:00 PM CDT Respiratory Rate 20 06/24/2022 12:0 0 PM CDT Oxygen Saturation 94% 06/24/2022 12: 52 PM CDT while ambulating Inhaled Oxygen Concentration - - Weight 86.2 kg (190 lb) 06/23/2022 5:05 PM CDT Height 180.3 cm (5' 11 ) 06/23/2022 5:0 5 PM CDT Body Mass Index 26.5 06/23/2022 5:05 PM CDT Plan of Treatment Upcoming Encounters Date Type Department Care Team (Late st Contact Info) Description 03/25/2025 10:00 AM CDT Video Visit [facility] [place] [address] [facility] [address] [place] [address] Nallely Greene, [facility] [address] [place] [address] Health Maintenance Due Date Last Done Comments HPV VACCINES (1 - Male 3-dos e series) 1999 DTAP/TDAP/TD VACCINES (1 - Tdap) 2003 INFLUENZA VACCINE (#1) 2025 9, 05/20/2017, 07/03/2006 HEPATITIS B VACCINES Completed 02/28/2007, 10/30/2006, 07/03/2006, Additional history exists Insurance MEDICARE PART A HOSPITAL ONLY BS [employer] BLUE ACCESS RX [employer] PLANS (INTERNAL) [facility] Internal Plans RX [employer] Express [place] [employer] TRANSPORTATION RX SERVRX Commercial Advance Directives For more information, please contact: [phone] * Full Code (Latest Code Status on File) Date Activated Date Inactivated Comments 06/23/2022 9:37 PM 06/24/2022 5:29 PM Care Teams Photostat Operator Relationship Specialty Start Date End Date Non-Staff, Physician NO ADDRESS ON FILE PCP - General 11/26/20
--- OUTSIDE RECORDS SUMMARY | 2025-03-18 09:40 | XMS_ITS | Encounter Summary ---
Author Organization [facility] Address [address] [place] [address] Care Team Providers Care Food And Beverage Controller Name Role Phone Non-Staff, Physician Primary Care Provider Unava ilable Encounter Details Date Type Department Care Team (Late st Contact Info) Description 04/10/2003 Outpatient Historical [facility] Family Medicine [place] [address] [facility] [address] [place] [address] Aleida Hopkins MD NO ADDRESS ON FILE Social History Tobacco Use Types Packs/Day Years Used Date Smoking Tobacco: Never Assessed Sex and Gender Information Value Date Recorded Sex Assigned at Not on file 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
--- OUTSIDE RECORDS SUMMARY | 2025-03-18 09:40 | XMS_ITS | Encounter Summary ---
Author Organization [facility] Address [address] [place] [address] Care Team Providers Care Wardrobe Stylist Name Role Phone Non-Staff, Physician Primary Care Provider Unava ilable Encounter Details Date Type Department Care Team (Latest Contact Info) Description 07/10/2000 Outpatient Historical [facility] Family Medicine- [place] [address] [place] [address] Kay Gross NO ADDRESS ON FILE Ingrowing nail (Primary Dx); Acute bronchitis Social History Tobacco Use Types Packs/Day Years Used Date Smoking Tobacco: Never Assessed Sex and Gender Information Value Date Recorded Sex Assigned at Not on file Legal Sex Male 3:44 AM SVP MONETIZATION Gender Identity Not on file Sexual Orientation Not on file documented as of this encounter Plan of Treatment Not on file documented as of this encounter Visit Diagnoses Diagnosis Ingrowing nail- Primary Acute bronchitis documented in this encounter Care Teams Wardrobe Stylist Relationship Specialty Start Date End Date Non-Staff, Physician NO ADDRESS ON FILE PCP - General 07/22/20 documented as of this encounter
--- OUTSIDE RECORDS SUMMARY | 2025-03-18 09:40 | XMS_ITS | Encounter Summary ---
Author Organization [facility] Address [address] [place] [address] Care Team Providers Care Sales Associate Fishing Name Role Phone Non-Staff, Physician Primary Care Provider Unava ilable Encounter Details Date Type Department Care Team (Latest Contact Info) Description 10/23/1998 Outpatient Historical [facility] [address] [place] [address] [place] [phone] Polo Alicea Jr., MD [address] [place] [address] Unspecified hyperkinetic syndrome of childhood (Primary Dx) Social History Tobacco Use Types Packs/Day Years Used Date Smoking Tobacco: Never Assessed Sex and Gender Information Value Date Recorded Sex Assigned at Not on file 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
--- OUTSIDE RECORDS SUMMARY | 2025-03-18 09:40 | XMS_ITS | Encounter Summary ---
Author Organization [facility] Address [address] [place] [address] Care Team Providers Care Scheduling Administrator Name Role Phone Non-Staff, Physician Primary Care Provider Unava ilable Encounter Details Date Type Department Care Team (Latest Contact Info) Description 11/12/2003 Outpatient Historical [facility] Family Medicine- [place] [address] [place] [address] Aldair Stein MD [address] [facility] [address] [place] [address] ORCHITIS/EPIDIDYMIT NEC (Primary Dx); URETHRITIS NOS Social History Tobacco Use Types Packs/Day Years Used Date Smoking Tobacco: Never Assessed Sex and Gender Information Value Date Recorded Sex Assigned at Not on file Legal Sex Male 3:44 AM SPEECH 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 EARLY INTERVENTION Gender Identity Not on file Sexual Orientation Not on file documented as of this encounter Plan of Treatment Not on file documented as of this encounter Visit Diagnoses Diagnosis Other orchitis, epididymitis, and epididymo-orchitis, without mention of abscess(604.99)- Primary Other orchitis, epididymitis, and epididymo-orchitis, without mention of abscess Urethritis, unspecified documented in this encounter Care Teams Scheduling Administrator Relationship Specialty Start Date End Date Non-Staff, Physician NO ADDRESS ON FILE PCP - General 07/22/20 documented as of this encounter
--- OUTSIDE RECORDS SUMMARY | 2025-03-18 09:40 | XMS_ITS | Encounter Summary ---
Author Organization [facility] Address [address] [place] [address] Care Team Providers Care Sales Engagement Manager Name Role Phone Non-Staff, Physician Primary Care Provider Unava ilable Encounter Details Date Type Department Care Team (Latest Contact Info) Description 10/04/2001 Outpatient Historical [facility] Family Medicine [place] [address] [facility] [address] [place] [address] Aleida Hopkins MD NO ADDRESS ON FILE STREP SORE THROAT (Primary Dx); CELLULITIS OF LEG; FEVER Social History Tobacco Use Types Packs/Day Years Used Date Smoking Tobacco: Never Assessed Sex and Gender Information Value Date Recorded Sex Assigned at Not on file 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
--- OUTSIDE RECORDS SUMMARY | 2025-03-18 09:40 | XMS_ITS | Encounter Summary ---
Author Organization [facility] Address [address] [place] [address] Care Team Providers Care Threat Analyst Name Role Phone Non-Staff, Physician Primary Care Provider Unava ilable Encounter Details Date Type Department Care Team (Latest Contact Info) Description 04/03/2001 Outpatient Historical [facility] Family Medicine- [place] [address] [place] [address] Aldair Stein MD [address] [facility] [address] [place] [address] Acute upper respiratory infections of unspecified site (Primary Dx); Impacted cerumen Social History Tobacco Use Types Packs/Day Years Used Date Smoking Tobacco: Never Assessed Sex and Gender Information Value Date Recorded Sex Assigned at Not on file 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
--- OUTSIDE RECORDS SUMMARY | 2025-03-18 09:40 | XMS_ITS | Encounter Summary ---
Author Organization [facility] Address [address] [place] [address] Care Team Providers Care Rough Rib Grader Name Role Phone Non-Staff, Physician Primary Care Provider Unava ilable Encounter Details Date Type Department Care Team (Latest Contact Info) Description 10/11/1999 Outpatient Historical [facility] Medicine- [address] [phone] Aldair Stein MD [address] [phone] Streptococcal sore throat (Primary Dx) Social History Tobacco Use Types Packs/Day Years Used Date Smoking Tobacco: Never Assessed Sex and Gender Information Value Date Recorded Sex Assigned at Not on file 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
--- OUTSIDE RECORDS SUMMARY | 2025-03-18 09:40 | XMS_ITS | Encounter Summary ---
Author Organization [facility] Address [address] 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
--- OUTSIDE RECORDS SUMMARY | 2025-03-18 09:40 | XMS_ITS | Encounter Summary ---
Author Organization [facility] Address [address] [place] [address] Care Team Providers Care Mainframe Systems Programmer Name Role Phone Non-Staff, Physician Primary Care Provider Unava ilable Encounter Details Date Type Department Care Team (Latest Contact Info) Description 04/02/1998 Outpatient Historical [facility] Pediatrics- [place] [address] [place] [address] Trey Pollock DC NO ADDRESS ON FILE Puberty (Primary Dx); Pain in joint, lower leg Social History Tobacco Use Types Packs/Day Years Used Date Smoking Tobacco: Never Assessed Sex and Gender Information Value Date Recorded Sex Assigned at Not on file 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
--- OUTSIDE RECORDS SUMMARY | 2025-03-18 09:40 | XMS_ITS | Encounter Summary ---
Author Organization [facility] Address [address] [place] [address] Care Team Providers Care Compensation Supervisor Name Role Phone Non-Staff, Physician Primary Care Provider Unava ilable Encounter Details Date Type Department Care Team (Latest Contact Info) Description 03/11/2003 Outpatient Historical [facility] Medicine- [address] [phone] Aldair Stein MD [address] [phone] UNS ASTHMA WOSTATUS ASTHMATICUS (Primary Dx) Social History Tobacco Use Types Packs/Day Years Used Date Smoking Tobacco: Never Assessed Sex and Gender Information Value Date Recorded Sex Assigned at Not on file 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
--- OUTSIDE RECORDS SUMMARY | 2025-03-18 09:40 | XMS_ITS | Encounter Summary ---
Author Organization [facility] Address [address] [place] [address] Care Team Providers Care Lumber Sticker Name Role Phone Non-Staff, Physician Primary Care Provider Unava ilable Encounter Details Date Type Department Care Team (Latest Contact Info) Description 06/05/[address] 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
--- OUTSIDE RECORDS SUMMARY | 2025-03-18 09:40 | XMS_ITS | Encounter Summary ---
Author Organization [facility] Address [address] [place] [address] Care Team Providers Care Rail Switch Operator Name Role Phone Non-Staff, Physician Primary Care Provider Unava ilable Encounter Details Date Type Department Care Team (Latest Contact Info) Description 05/30/2001 Outpatient Historical [facility] Family Medicine [place] [address] [facility] [address] [place] [address] Aleida Hopkins MD NO ADDRESS ON FILE Other general medical examination for administrative purposes (Primary Dx); Pain in joint, lower leg Social History Tobacco Use Types Packs/Day Years Used Date Smoking Tobacco: Never Assessed Sex and Gender Information Value Date Recorded Sex Assigned at Not on file 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
--- OUTSIDE RECORDS SUMMARY | 2025-03-18 09:40 | XMS_ITS | Encounter Summary ---
Author Organization [facility] Address [address] [place] [address] Care Team Providers Care Licensed Acupuncturist Name Role Phone Non-Staff, Physician Primary Care Provider Unava ilable Encounter Details Date Type Department Care Team (Latest Contact Info) Description 11/09/1998 Outpatient Historical [facility] Medicine- [address] [phone] Jd Newell DO NO ADDRESS ON FILE Acute bronchitis (Primary Dx); Acute sinusitis, unspecified Social History Tobacco Use Types Packs/Day Years Used Date Smoking Tobacco: Never Assessed Sex and Gender Information Value Date Recorded Sex Assigned at Not on file 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
--- OUTSIDE RECORDS SUMMARY | 2025-03-18 09:40 | XMS_ITS | Encounter Summary ---
Author Organization [facility] Address [address] [place] [address] Care Team Providers Care Mechanical Striper Name Role Phone Non-Staff, Physician Primary Care Provider Unava ilable Encounter Details Date Type Department Care Team (Latest Contact Info) Description 12/22/2003 Outpatient Historical [facility] Family Medicine- [place] [address] [place] [address] Aleida Hopkins MD NO ADDRESS ON FILE ACUTE BRONCHITIS (Primary Dx); ASTHMA UNSPECIFIED; ACUTE PHARYNGITIS; ALLERGIC RHINITIS NOS Social History Tobacco Use Types Packs/Day Years Used Date Smoking Tobacco: Never Assessed Sex and Gender Information Value Date Recorded Sex Assigned at Not on file 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
--- OUTSIDE RECORDS SUMMARY | 2025-03-18 09:40 | XMS_ITS | Encounter Summary ---
Author Organization [facility] Address [address] [place] [address] Care Team Providers Care Conductor Yard Name Role Phone Non-Staff, Physician Primary Care Provider Unava ilable Encounter Details Date Type Department Care Team (Latest Contact Info) Description 05/11/1998 Outpatient Historical [facility] Mynor Morrison MD NO ADDRESS ON FILE Pain in joint, lower leg (Primary Dx) Social History Tobacco Use Types Packs/Day Years Used Date Smoking Tobacco: Never Assessed Sex and Gender Information Value Date Recorded Sex Assigned at Not on file 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
--- OUTSIDE RECORDS SUMMARY | 2025-03-18 09:40 | XMS_ITS | Encounter Summary ---
Author Organization [facility] Address [address] [place] [address] Care Team Providers Care Manager Hospitality Name Role Phone Non-Staff, Physician Primary Care Provider Unava ilable Encounter Details Date Type Department Care Team (Latest Contact Info) Description 11/17/2004 Outpatient Historical [facility] Family Medicine [place] [address] [facility] [address] [place] [address] Aleida Hopkins MD NO ADDRESS ON FILE STREP SORE THROAT (Primary Dx) Social History Tobacco Use Types Packs/Day Years Used Date Smoking Tobacco: Never Assessed Sex and Gender Information Value Date Recorded Sex Assigned at Not on file Legal Sex Male 3:44 AM C D STRIPPER Gender Identity Not on file Sexual Orientation Not on file documented as of this encounter Plan of Treatment Not on file documented as of this encounter Visit Diagnoses Diagnosis Streptococcal sore throat- Primary documented in this encounter Care Teams Manager Hospitality Relationship Specialty Start Date End Date Non-Staff, Physician NO ADDRESS ON FILE PCP - General 07/22/20 documented as of this encounter
--- OUTSIDE RECORDS SUMMARY | 2025-03-18 09:40 | XMS_ITS | Encounter Summary ---
Author Organization [facility] Address [address] [place] [address] Care Team Providers Care Rn Intake Name Role Phone Non-Staff, Physician Primary Care Provider Unava ilable Encounter Details Date Type Department Care Team (Latest Contact Info) Description 01/23/2001 Outpatient Historical [facility] Juanjose Singh MD [address] [place] [address] Tear of medial cartilage or meniscus of knee, current (Primary Dx) Social History Tobacco Use Types Packs/Day Years Used Date Smoking Tobacco: Never Assessed Sex and Gender Information Value Date Recorded Sex Assigned at Not on file 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
--- OUTSIDE RECORDS SUMMARY | 2025-03-18 09:40 | XMS_ITS | Encounter Summary ---
Author Organization [facility] Address [address] [place] [address] Care Team Providers Care Supervisor Telephone Clerks Name Role Phone Non-Staff, Physician Primary Care Provider Unava ilable Encounter Details Date Type Department Care Team (Latest Contact Info) Description 04/10/2003 Outpatient Historical [facility] Family Medicine [place] [address] [facility] [address] [place] [address] Aleida Hopkins MD NO ADDRESS ON FILE ACUTE PHARYNGITIS (Primary Dx) Social History Tobacco Use Types Packs/Day Years Used Date Smoking Tobacco: Never Assessed Sex and Gender Information Value Date Recorded Sex Assigned at Not on file 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
--- OUTSIDE RECORDS SUMMARY | 2025-03-18 09:40 | XMS_ITS | Encounter Summary ---
Author Organization [facility] Address [address] [place] [address] Care Team Providers Care Technology Advisor Name Role Phone Non-Staff, Physician Primary Care Provider Unava ilable Encounter Details Date Type Department Care Team (Latest Contact Info) Description 05/25/1999 Outpatient Historical [facility] Psychiatry- [address] [place] [phone] Polo Alicea Jr., MD [address] 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
--- OUTSIDE RECORDS SUMMARY | 2025-03-18 09:40 | XMS_ITS | Encounter Summary ---
Author Organization [facility] Address [address] [place] [address] Care Team Providers Care Restaurant Hourly Team Member Name Role Phone Non-Staff, Physician Primary Care Provider Unava ilable Encounter Details Date Type Department Care Team (Latest Contact Info) Description 02/12/2001 Outpatient Historical [facility] Family Medicine [place] [address] [facility] [address] [place] [address] Aldair Stein MD [address] [phone] Ingrowing nail (Primary Dx) Social History Tobacco Use Types Packs/Day Years Used Date Smoking Tobacco: Never Assessed Sex and Gender Information Value Date Recorded Sex Assigned at Not on file 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
--- OUTSIDE RECORDS SUMMARY | 2025-03-18 09:40 | XMS_ITS | Encounter Summary ---
Author Organization [facility] Address [address] [place] [address] Care Team Providers Care Core Measures Abstractor Name Role Phone Non-Staff, Physician Primary Care Provider Unava ilable Encounter Details Date Type Department Care Team (Latest Contact Info) Description 11/15/[address] 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
--- OUTSIDE RECORDS SUMMARY | 2025-03-18 09:40 | XMS_ITS | Encounter Summary ---
Author Organization [facility] Address [address] [place] [address] Care Team Providers Care Electrical Engineering Teacher Name Role Phone Non-Staff, Physician Primary Care Provider Unava ilable Encounter Details Date Type Department Care Team (Latest Contact Info) Description 01/10/2000 Outpatient Historical [facility] Family Medicine- [place] [address] [place] [address] Kay Gross NO ADDRESS ON FILE Other mucopurulent conjunctivitis (Primary Dx); Acute pharyngitis; Lymphadenitis, unspecified, except mesenteric Social History Tobacco Use Types Packs/Day Years Used Date Smoking Tobacco: Never Assessed Sex and Gender Information Value Date Recorded Sex Assigned at Not on file 

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
[2025-03-18 10:25] VITALS: PULSE 83; RESP 18; O2SAT 94
[2025-03-18 10:29] VITALS: PULSE 86
[2025-03-18] MEDS: methylPREDNISolone sod succ 125 mg/2 mL INJ IM (10:50)
[2025-03-18 10:59] VITALS: BP 114/85; PULSE 82; O2SAT 95
== END 2025-03-18 11:00 | disposition home or self-care (01) ==
PROVIDERS: Emergency Provider Physician Assistant; PCP Nurse Practitioner Family
DX: J68.3 Other acute and subacute respiratory conditions due to chemicals, gases, fumes and vapors (principal)
CPT/HCPCS: 94640; 96372; 99284; J2919; J9999

== ENCOUNTER 2025-08-19 11:57 | Emergency (ER) | payer BC, SELFPAY ==
[2025-03-27 11:04] VITALS: BP 137/87; BMI 30.9
[2025-08-19 12:00] VITALS: BP 126/86; PULSE 89; RESP 17; TEMP 36.6; O2SAT 96; BMI 31.4
--- OUTSIDE RECORDS SUMMARY | 2025-08-19 12:08 | XMS_ITS | Encounter Summary ---
Author Organization [facility] Address [address] [place] [address] Care Team Providers Care Planning And Analysis Manager Name Role Phone Non-Staff, Physician Primary Care Provider Unava ilable Encounter Details Date Type Department Care Team (Latest Contact Info) Description 04/10/2003 Outpatient Historical [facility] Family Medicine [place] [address] [facility] [address] [place] [address] Aleida Hopkins MD NO ADDRESS ON FILE ACUTE PHARYNGITIS (Primary Dx) Social History Tobacco Use Types Packs/Day Years Used Date Smoking Tobacco: Never Assessed Sex and Gender Information Value Date Recorded Sex Assigned at Not on file 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
--- OUTSIDE RECORDS SUMMARY | 2025-08-19 12:08 | XMS_ITS | Encounter Summary ---
Author Organization [facility] Address [address] [place] [address] Care Team Providers Care Bilingual Customer Service Specialist Name Role Phone Non-Staff, Physician Primary Care Provider Unava ilable Encounter Details Date Type Department Care Team (Latest Contact Info) Description 03/11/2003 Outpatient Historical [facility] Medicine- [address] [phone] Aldair Stein MD [address] [phone] UNS ASTHMA WOSTATUS ASTHMATICUS (Primary Dx) Social History Tobacco Use Types Packs/Day Years Used Date Smoking Tobacco: Never Assessed Sex and Gender Information Value Date Recorded Sex Assigned at Not on file 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
--- OUTSIDE RECORDS SUMMARY | 2025-08-19 12:08 | XMS_ITS | Encounter Summary ---
Author Organization [facility] Address [address] [place] [address] Care Team Providers Care Fashion Supervisor Name Role Phone Non-Staff, Physician Primary Care Provider Unava ilable Encounter Details Date Type Department Care Team (Late st Contact Info) Description 07/29/2002 Outpatient Historical [facility] Family Medicine- [place] [address] [place] [address] Aleida Hopkins MD NO ADDRESS ON FILE Social History Tobacco Use Types Packs/Day Years Used Date Smoking Tobacco: Never Assessed Sex and Gender Information Value Date Recorded Sex Assigned at Not on file 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
--- OUTSIDE RECORDS SUMMARY | 2025-08-19 12:08 | XMS_ITS | Encounter Summary ---
Author Organization [facility] Address [address] [place] [address] Care Team Providers Care Appliquer Name Role Phone Non-Staff, Physician Primary Care Provider Unava ilable Encounter Details Date Type Department Care Team (Latest Contact Info) Description 05/20/2003 Outpatient Historical [facility] Family Medicine [place] [address] [facility] [address] [place] [address] Aldair Stein MD [address] [phone] SPRAIN OF KNEE & LEG NOS (Primary Dx) Social History Tobacco Use Types Packs/Day Years Used Date Smoking Tobacco: Never Assessed Sex and Gender Information Value Date Recorded Sex Assigned at Not on file 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
--- OUTSIDE RECORDS SUMMARY | 2025-08-19 12:08 | XMS_ITS | Clinical Summary ---
Author Organization [facility] Address [address] [facility] [place] [address] Phone Care Team Providers Care Senior Premium Auditor Name Role Phone Non-Staff, Physician Primary Care [...] on file Legal Sex Male 6:53 AM THREAD MARKER Gender Identity Not on [...] 06/23/2022 5:05 PM CDT Plan of Treatment Health Maintenance Due Date Last Done Comments DTAP/TDAP/TD VACCINES (1 - Tdap) 2003 INFLUENZA VACCINE (#1) 2025 9, 05/20/2017, 07/03/2006 HEPATITIS B VACCINES Completed 02/28/2007, 10/30/2006, 07/03/2006, Additional history exists HPV VACCINES (No Doses Required) Completed Insurance MEDICARE PART A HOSPITAL ONLY BCBS ANTH BLUE ACCESS RX MICHAEL PLANS (INTERNAL) [facility] Internal Plans RX [employer] S[employer] Express RX SERVRX Commercial Advance Directives For more information, please contact: [phone] * Full Code (Latest Code Status on File) Date Activated Date Inactivated Comments 06/23/2022 9:37 PM 06/24/2022 5:29 PM Care Teams Senior Premium Auditor Relationship Specialty Start Date End Date Non-Staff, Physician NO ADDRESS ON FILE PCP - General 11/26/20
--- OUTSIDE RECORDS SUMMARY | 2025-08-19 12:08 | XMS_ITS | Encounter Summary ---
Author Organization [facility] Address [address] [place] [address] Care Team Providers Care Roads Supervisor Name Role Phone Non-Staff, Physician Primary Care Provider Unava ilable Encounter Details Date Type Department Care Team (Latest Contact Info) Description 01/23/2001 Outpatient Historical [facility] Juanjose Singh MD [address] [place] [address] Tear of medial cartilage or meniscus of knee, current (Primary Dx) Social History Tobacco Use Types Packs/Day Years Used Date Smoking Tobacco: Never Assessed Sex and Gender Information Value Date Recorded Sex Assigned at Not on file Legal Sex Male 3:44 AM MANAGEMENT ANALYST Gender Identity Not on file Sexual Orientation Not on file documented as of this encounter Plan of Treatment Not on file documented as of this encounter Visit Diagnoses Diagnosis Tear of medial cartilage or meniscus of knee, current- Primary documented in this encounter Care Teams Roads Supervisor Relationship Specialty Start Date End Date Non-Staff, Physician NO ADDRESS ON FILE PCP - General 07/22/20 documented as of this encounter
--- OUTSIDE RECORDS SUMMARY | 2025-08-19 12:08 | XMS_ITS | Encounter Summary ---
Author Organization [facility] Address [address] [place] [address] Care Team Providers Care Computer Assistant Name Role Phone Non-Staff, Physician Primary Care Provider Unava ilable Encounter Details Date Type Department Care Team (Latest Contact Info) Description 02/22/2001 Outpatient Historical [facility] Family Medicine [place] [address] [facility] [address] [place] [address] Aldair Stein MD [address] [phone] Ingrowing nail (Primary Dx) Social History Tobacco Use Types Packs/Day Years Used Date Smoking Tobacco: Never Assessed Sex and Gender Information Value Date Recorded Sex Assigned at Not on file 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
--- OUTSIDE RECORDS SUMMARY | 2025-08-19 12:08 | XMS_ITS | Encounter Summary ---
Author Organization [facility] Address [address] [place] [address] Care Team Providers Care C.O.D. 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 Biller Relationship Specialty Start Date End Date Non-Staff, Physician NO ADDRESS ON FILE PCP - General 07/22/20 documented as of this encounter
--- OUTSIDE RECORDS SUMMARY | 2025-08-19 12:08 | XMS_ITS | Encounter Summary ---
Author Organization [facility] Address [address] [place] [address] Care Team Providers Care Lawn Service Worker Name Role Phone Non-Staff, Physician Primary Care Provider Unava ilable Encounter Details Date Type Department Care Team (Latest Contact Info) Description 05/25/1999 Outpatient Historical [facility] Psychiatry- [address] [place] [phone] Polo Alicea Jr., MD [address] [facility] [place] [address] Attention deficit disorder with hyperactivity(314.01 ) (Primary Dx); Impulse control disorder, unspecified Social History Tobacco Use Types Packs/Day Years Used Date Smoking Tobacco: Never Assessed Sex and Gender Information Value Date Recorded Sex Assigned at Not on file 

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
--- OUTSIDE RECORDS SUMMARY | 2025-08-19 12:08 | XMS_ITS | Encounter Summary ---
Author Organization [facility] Address [address] [place] [address] Care Team Providers Care Equine Manager Name Role Phone Non-Staff, Physician Primary Care Provider Unava ilable Encounter Details Date Type Department Care Team (Latest Contact Info) Description 10/04/2001 Outpatient Historical [facility] Family Medicine [place] [address] [facility] [address] [place] [address] Aleida Hopkins MD NO ADDRESS ON FILE STREP SORE THROAT (Primary Dx); CELLULITIS OF LEG; FEVER Social History Tobacco Use Types Packs/Day Years Used Date Smoking Tobacco: Never Assessed Sex and Gender Information Value Date Recorded Sex Assigned at Not on file 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
--- OUTSIDE RECORDS SUMMARY | 2025-08-19 12:08 | XMS_ITS | Encounter Summary ---
Author Organization [facility] Address [address] [place] [address] Care Team Providers Care Instrumental Teacher Name Role Phone Non-Staff, Physician Primary Care Provider Unava ilable Encounter Details Date Type Department Care Team (Latest Contact Info) Description 07/29/2002 Outpatient Historical [facility] Family Medicine- [place] [address] [place] [address] Aleida Hopkins MD NO ADDRESS ON FILE ACUTE PHARYNGITIS (Primary Dx) Social History Tobacco Use Types Packs/Day Years Used Date Smoking Tobacco: Never Assessed Sex and Gender Information Value Date Recorded Sex Assigned at Not on file Legal Sex Male 3:44 AM CHOIR DIRECTOR Gender Identity Not on file Sexual Orientation Not on file documented as of this encounter Plan of Treatment Not on file documented as of this encounter Visit Diagnoses Diagnosis Acute pharyngitis- Primary documented in this encounter Care Teams Instrumental Teacher Relationship Specialty Start Date End Date Non-Staff, Physician NO ADDRESS ON FILE PCP - General 07/22/20 documented as of this encounter
--- OUTSIDE RECORDS SUMMARY | 2025-08-19 12:08 | XMS_ITS | Encounter Summary ---
Author Organization [facility] Address [address] [place] [address] Care Team Providers Care Steel Welder Name Role Phone Non-Staff, Physician Primary Care Provider Unava ilable Encounter Details Date Type Department Care Team (Latest Contact Info) Description 12/22/2003 Outpatient Historical [facility] Family Medicine- [place] [address] [facility] [place] [address] Aleida Hopkins MD NO ADDRESS ON FILE ACUTE BRONCHITIS (Primary Dx); ASTHMA UNSPECIFIED; ACUTE PHARYNGITIS; ALLERGIC RHINITIS NOS Social History Tobacco Use Types Packs/Day Years Used Date Smoking Tobacco: Never Assessed Sex and Gender Information Value Date Recorded Sex Assigned at Not on file 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
--- OUTSIDE RECORDS SUMMARY | 2025-08-19 12:08 | XMS_ITS | Encounter Summary ---
Author Organization [facility] Address [address] [place] [address] Care Team Providers Care Traffic Technician Name Role Phone Non-Staff, Physician Primary Care Provider Unava ilable Encounter Details Date Type Department Care Team (Latest Contact Info) Description 10/08/2002 Outpatient Historical [facility] Family Medicine- [place] [address] [place] [address] Jd Newell DO NO ADDRESS ON FILE JOINT PAIN-L/LEG (Primary Dx) Social History Tobacco Use Types Packs/Day Years Used Date Smoking Tobacco: Never Assessed Sex and Gender Information Value Date Recorded Sex Assigned at Not on file 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
--- OUTSIDE RECORDS SUMMARY | 2025-08-19 12:08 | XMS_ITS | Encounter Summary ---
Author Organization [facility] Address [address] [place] [address] Care Team Providers Care Ham Boner Name Role Phone Non-Staff, Physician Primary Care Provider Unava ilable Encounter Details Date Type Department Care Team (Latest Contact Info) Description 11/15/2001 Outpatient Historical [facility] Family Medicine [place] [address] [facility] [address] [place] [address] Aleida Hopkins MD NO ADDRESS ON FILE ACUTE MAXILLARY SINUSITIS (Primary Dx); ACUTE BRONCHITIS Social History Tobacco Use Types Packs/Day Years Used Date Smoking Tobacco: Never Assessed Sex and Gender Information Value Date Recorded Sex Assigned at Not on file Legal Sex Male 3:44 AM DAIRY NUTRITION CONSULTANT Gender Identity Not on file Sexual Orientation Not on file documented as of this encounter Plan of Treatment Not on file documented as of this encounter Visit Diagnoses Diagnosis Acute maxillary sinusitis- Primary Acute bronchitis documented in this encounter Care Teams Ham Boner Relationship Specialty Start Date End Date Non-Staff, Physician NO ADDRESS ON FILE PCP - General 07/22/20 documented as of this encounter
--- OUTSIDE RECORDS SUMMARY | 2025-08-19 12:08 | XMS_ITS | Encounter Summary ---
Author Organization [facility] Address [address] [place] [address] Care Team Providers Care Hospice Clinical Marketer Name Role Phone Non-Staff, Physician Primary Care Provider Unava ilable Encounter Details Date Type Department Care Team (Latest Contact Info) Description 09/08/2003 Outpatient Historical [facility] [place] 104 [facility] 60 [place] [address] Aldair Stein MD [address] [address] ACUTE BRONCHITIS (Primary Dx); ACUTE PHARYNGITIS; ACUTE SINUSITIS NOS Social History Tobacco Use Types Packs/Day Years Used Date Smoking Tobacco: Never Assessed Sex and Gender Information Value Date Recorded Sex Assigned at Not on file 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
--- OUTSIDE RECORDS SUMMARY | 2025-08-19 12:08 | XMS_ITS | Encounter Summary ---
Author Organization [facility] Address [address] [place] [address] Care Team Providers Care Tape Cutting Machine Operator Name Role Phone Non-Staff, Physician Primary Care Provider Unava ilable Encounter Details Date Type Department Care Team (Latest Contact Info) Description 02/12/2001 Outpatient Historical 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
--- OUTSIDE RECORDS SUMMARY | 2025-08-19 12:08 | XMS_ITS | Encounter Summary ---
Author Organization [facility] Address [address] [place] [address] Care Team Providers Care Gold Marker Name Role Phone Non-Staff, Physician Primary Care Provider Unava ilable Encounter Details Date Type Department Care Team (Latest Contact Info) Description 05/30/2001 Outpatient Historical [facility] Family Medicine [place] 104 [facility] 60 [place] [address] Aleida Hopkins MD NO ADDRESS ON FILE Other general medical examination for administrative purposes (Primary Dx); Pain in joint, lower leg Social History Tobacco Use Types Packs/Day Years Used Date Smoking Tobacco: Never Assessed Sex and Gender Information Value Date Recorded Sex Assigned at Not on file 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
--- OUTSIDE RECORDS SUMMARY | 2025-08-19 12:08 | XMS_ITS | Encounter Summary ---
Author Organization [facility] Address [address] [place] [address] Care Team Providers Care Division Chair Name Role Phone Non-Staff, Physician Primary Care Provider Unava ilable Encounter Details Date Type Department Care Team (Latest Contact Info) Description 02/23/2001 Outpatient Historical [facility] Family Medicine [place] 104 [facility] 60 [place] [address] Aldair Stein MD [address] [phone] Ingrowing nail (Primary Dx) Social History Tobacco Use Types Packs/Day Years Used Date Smoking Tobacco: Never Assessed Sex and Gender Information Value Date Recorded Sex Assigned at Not on file 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
--- OUTSIDE RECORDS SUMMARY | 2025-08-19 12:08 | XMS_ITS | Encounter Summary ---
Author Organization [facility] Address [address] [place] [address] Care Team Providers Care Bowling Alley Manager Name Role Phone Non-Staff, Physician Primary Care Provider Unava ilable Encounter Details Date Type Department Care Team (Latest Contact Info) Description 11/12/2003 Outpatient Historical [facility] Family Medicine- [place] [address] [place] [address] Aldair Stein MD [address] [facility] [address] [place] [address] ORCHITIS/EPIDIDYMIT NEC (Primary Dx); URETHRITIS NOS Social History Tobacco Use Types Packs/Day Years Used Date Smoking Tobacco: Never Assessed Sex and Gender Information Value Date Recorded Sex Assigned at Not on file 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
--- OUTSIDE RECORDS SUMMARY | 2025-08-19 12:08 | XMS_ITS | Encounter Summary ---
Author Organization [facility] Address [address] [place] [address] Care Team Providers Care Assistant Front Desk Manager Name Role Phone Non-Staff, Physician Primary Care Provider Unava ilable Encounter Details Date Type Department Care Team (Latest Contact Info) Description 06/05/2003 Outpatient Historical [facility] Family Medicine [place] [address] [facility] 60 [place] [address] Aleida Hopkins MD NO ADDRESS ON FILE ACUTE SINUSITIS NOS (Primary Dx) Social History Tobacco Use Types Packs/Day Years Used Date Smoking Tobacco: Never Assessed Sex and Gender Information Value Date Recorded Sex Assigned at Not on file 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
--- OUTSIDE RECORDS SUMMARY | 2025-08-19 12:08 | XMS_ITS | Encounter Summary ---
Author Organization [facility] Address [address] [place] [address] Care Team Providers Care Meat Passer Name Role Phone Non-Staff, Physician Primary Care Provider Unava ilable Encounter Details Date Type Department Care Team (Latest Contact Info) Description 11/09/1998 Outpatient Historical [facility] Medicine- [address] [phone] Jd Newell DO NO ADDRESS ON FILE Acute bronchitis (Primary Dx); Acute sinusitis, unspecified Social History Tobacco Use Types Packs/Day Years Used Date Smoking Tobacco: Never Assessed Sex and Gender Information Value Date Recorded Sex Assigned at Not on file 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
--- OUTSIDE RECORDS SUMMARY | 2025-08-19 12:08 | XMS_ITS | Encounter Summary ---
Author Organization [facility] Address [address] [place] [address] Care Team Providers Care Finance Officer Name Role Phone Non-Staff, Physician Primary Care Provider Unava ilable Encounter Details Date Type Department Care Team (Latest Contact Info) Description 04/03/2001 Outpatient Historical [facility] Family Medicine- [place] [address] [place] [address] Aldair Stein MD [address] [facility] [address] [place] [address] Acute upper respiratory infections of unspecified site (Primary Dx); Impacted cerumen Social History Tobacco Use Types Packs/Day Years Used Date Smoking Tobacco: Never Assessed Sex and Gender Information Value Date Recorded Sex Assigned at Not on file 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
--- OUTSIDE RECORDS SUMMARY | 2025-08-19 12:08 | XMS_ITS | Encounter Summary ---
Author Organization [facility] Address [address] [place] [address] Care Team Providers Care Telephone Worker Name Role Phone Non-Staff, Physician Primary Care Provider Unava ilable Encounter Details Date Type Department Care Team (Late st Contact Info) Description 04/10/2003 Outpatient Historical 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
--- OUTSIDE RECORDS SUMMARY | 2025-08-19 12:08 | XMS_ITS | Encounter Summary ---
Author Organization [facility] Address [address] [place] [address] Care Team Providers Care Humanities Professor Name Role Phone Non-Staff, Physician Primary Care Provider Unava ilable Encounter Details Date Type Department Care Team (Latest Contact Info) Description 10/15/2002 Outpatient Historical [facility] Family Medicine- [place] [address] [place] [address] Jd Newell DO NO ADDRESS ON FILE JOINT PAIN-L/LEG (Primary Dx) Social History Tobacco Use Types Packs/Day Years Used Date Smoking Tobacco: Never Assessed Sex and Gender Information Value Date Recorded Sex Assigned at Not on file 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
--- OUTSIDE RECORDS SUMMARY | 2025-08-19 12:09 | XMS_ITS | Clinical Summary ---
Author Organization [facility] Address [address] [place] [address] Care Team Providers Care Cmm Inspector Name Role Phone Non-Staff, Physician Primary Care [...] on file Legal Sex Male 3:44 AM ASSOCIATE DEAN OF WOMEN Gender Identity Not on file Sexual Orientation Not on file Occupation Industry Job Start Date Job End Date Not on file Not on file Not on file Not on file Not on file Not on file Not on file Not on file Last Filed Vital Signs Vital Sign Reading Time Taken Comments Blood Pressure 101/80 07/24/2019 4:25 PM ASSOCIATE DEAN OF WOMEN Pulse 96 07/24/2019 4:25 PM ASSOCIATE DEAN OF WOMEN Temperature 36.7 C (98.1 F) 07/24/2019 4:25 PM ASSOCIATE DEAN OF WOMEN Respiratory Rate 24 07/24/2019 4:25 PM ASSOCIATE DEAN OF WOMEN Oxygen Saturation 95% 07/24/2019 4:25 PM ASSOCIATE DEAN OF WOMEN Inhaled Oxygen Concentration - - Weight 78.7 kg (173 lb 9.6 oz) 07/24/2019 4:25 P M ASSOCIATE DEAN OF WOMEN Height 180.3 cm (5' 11 ) 07/24/2019 4:25 PM ASSOCIATE DEAN OF WOMEN Body Mass Index 24.21 07/24/2019 4:25 PM ASSOCIATE DEAN OF WOMEN Plan of Treatment Health Maintenance Due Date Last Done Comments DTAP/TDAP/TD VACCINES (1 - Tdap) 2003 HEPATITIS B VACCINES (1 of 3 - 19+ 3-dose series) 2003 INFLUENZA VACCINE (#1) 2025 07/24/2019, 2016 HPV VACCINES (No Doses Required) Completed Insurance MEDICARE PART A AND B Advance Directives For more information, please contact: [phone] * Full Code (Latest Code Status on File) Date Activated Date Inactivated Comments 12/16/2013 8:01 AM 12/16/2013 2:55 PM Care Teams Cmm Inspector Relationship Specialty Start Date End Date Non-Staff, Physician NO ADDRESS ON FILE PCP - General 07/22/20
--- OUTSIDE RECORDS SUMMARY | 2025-08-19 12:09 | XMS_ITS | Encounter Summary ---
Author Organization [facility] Address [address] [place] [address] Care Team Providers Care Digital Intern Name Role Phone Non-Staff, Physician Primary Care Provider Unava ilable Encounter Details Date Type Department Care Team (Latest Contact Info) Description 01/10/2000 Outpatient Historical [facility] Family Medicine- [place] [address] [place] [address] Kay Gross NO ADDRESS ON FILE Other mucopurulent conjunctivitis (Primary Dx); Acute pharyngitis; Lymphadenitis, unspecified, except mesenteric Social History Tobacco Use Types Packs/Day Years Used Date Smoking Tobacco: Never Assessed Sex and Gender Information Value Date Recorded Sex Assigned at Not on file 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
--- OUTSIDE RECORDS SUMMARY | 2025-08-19 12:09 | XMS_ITS | Encounter Summary ---
Author Organization [facility] Address [address] [place] [address] Care Team Providers Care Lode Miner Name Role Phone Non-Staff, Physician Primary Care Provider Unava ilable Encounter Details Date Type Department Care Team (Latest Contact Info) Description 08/18/2000 Outpatient Historical [facility] Family Medicine- [place] [address] [place] [address] Jd Newell, NO ADDRESS ON FILE Unspecified sinusitis (chronic) (Primary Dx); Cellulitis and abscess of toe, unspecified Social History Tobacco Use Types Packs/Day Years Used Date Smoking Tobacco: Never Assessed Sex and Gender Information Value Date Recorded Sex Assigned at Not on file 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
--- OUTSIDE RECORDS SUMMARY | 2025-08-19 12:09 | XMS_ITS | Encounter Summary ---
Author Organization [facility] Address [address] [place] [address] Care Team Providers Care Recreational Vehicle Repairer Name Role Phone Non-Staff, Physician Primary Care Provider Unava ilable Encounter Details Date Type Department Care Team (Latest Contact Info) Description 11/17/2004 Outpatient Historical [facility] Family Medicine [place] [address] 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
--- OUTSIDE RECORDS SUMMARY | 2025-08-19 12:09 | XMS_ITS | Encounter Summary ---
Author Organization [facility] Address [address] [place] [address] Care Team Providers Care Worship Leader Name Role Phone Non-Staff, Physician Primary Care Provider Unava ilable Encounter Details Date Type Department Care Team (Latest Contact Info) Description 05/11/1998 Outpatient Historical [facility] Mynor Morrison MD NO ADDRESS ON FILE Pain in joint, lower leg (Primary Dx) Social History Tobacco Use Types Packs/Day Years Used Date Smoking Tobacco: Never Assessed Sex and Gender Information Value Date Recorded Sex Assigned at Not on file Legal Sex Male 3:44 AM TECHNICAL FELLOW Gender Identity Not on file Sexual Orientation Not on file documented as of this encounter Plan of Treatment Not on file documented as of this encounter Visit Diagnoses Diagnosis Pain in joint, lower leg- Primary documented in this encounter Care Teams Worship Leader Relationship Specialty Start Date End Date Non-Staff, Physician NO ADDRESS ON FILE PCP - General 07/22/20 documented as of this encounter
--- OUTSIDE RECORDS SUMMARY | 2025-08-19 12:09 | XMS_ITS | Encounter Summary ---
Author Organization [facility] Address [address] [place] [address] Care Team Providers Care Director Acute Name Role Phone Non-Staff, Physician Primary Care Provider Unava ilable Encounter Details Date Type Department Care Team (Latest Contact Info) Description 09/04/2000 Outpatient Historical [facility] Family Medicine- [place] [address] [facility] [place] [address] Aldair Stein MD [address] [facility] [address] [place] [address] Acute pharyngitis (Primary Dx); Acute sinusitis, unspecified Social History Tobacco Use Types Packs/Day Years Used Date Smoking Tobacco: Never Assessed Sex and Gender Information Value Date Recorded Sex Assigned at Not on file 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
--- OUTSIDE RECORDS SUMMARY | 2025-08-19 12:09 | XMS_ITS | Encounter Summary ---
Author Organization [facility] Address [address] [place] [address] Care Team Providers Care Power Cutting Machine Operator Name Role Phone Non-Staff, Physician Primary Care Provider Unava ilable Encounter Details Date Type Department Care Team (Latest Contact Info) Description 04/02/1998 Outpatient Historical [facility] Pediatrics- [place] [address] [place] [address] Trey Pollock DC NO ADDRESS ON FILE Puberty (Primary Dx); Pain in joint, lower leg Social History Tobacco Use Types Packs/Day Years Used Date Smoking Tobacco: Never Assessed Sex and Gender Information Value Date Recorded Sex Assigned at Not on file 

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
--- OUTSIDE RECORDS SUMMARY | 2025-08-19 12:09 | XMS_ITS | Continuity of Care Document ---
Author Organization Patsy Galvin, [facility] ([facility]) Address [address] [place] [address] Care Team Providers Care Second Class Welder Name Role Phone MILES DELGADO Primary Care Provider Unavailabl e Assessment No assessment recorded. Plan of Treatment Reminders Order Date Submit Date Provider Last Modified By Organization Details Last Modified Time Details Appointments None recorded. Lab pharyngeal pathogens DNA and RNA panel, OSCAR+non-pro be, throat 2024 025 [facility] ([facility]), [address] [place], [address], 10:57:08 Referral None recorded. Procedures None recorded. Surgeries None recorded. Imaging None recorded. Medication Orders amoxicillin 875 mg tablet 2024 025 [facility], [address], [place], [address], 05:00:53 Patient TargetsNo targets recorded. Patient Instructions Encounter Date Encounter Id Patient Instructions Last Modified By Organization Details Last Modified Time 07/09/2025 [id number] Follow up for worsening. May use Dayquil for symptom relief Not available 07/09/2025 09:26:44 Although strep negative, with history of strep and having worsening swallowing- I am going to place him on amoxicillin Not available 07/09/2025 09:23:32 Reason for Referral None Reported. Results Created Date Observation Date Name Description Value Unit Range Abnormal Flag Note LastModifiedBy Organization Detail LastModifiedTime 07/09/2007/09/2025 phary ngeal patho gens DNA and RNA panel , OSCAR+n on-pr obe, throa t Strep A negati ve Not Available [facility] ([facility]) [address] [place], [address], 07/09/2025 08:55:27 07/09/20 25 07/09/2025 phary ngeal patho gens DNA and RNA panel , OSCAR+n on-pr obe, throa t Rhinovirus positi ve Not Available [facility] ([facility]) [address] [place] [address], [address], 07/09/2025 08:55:27 07/09/20 25 07/09/2025 phary ngeal patho gens DNA and RNA panel , OSCAR+n on-pr obe, throa t RSV negati ve Not Available [facility] ([facility]) [address] [place] [address], [address], 07/09/2025 08:55:27 07/09/20 25 07/09/2025 phary ngeal patho gens DNA and RNA panel , OSCAR+n on-pr obe, throa t Influenza A negati ve Not Available [facility] ([facility]) [address] [place] [address], [address], 07/09/2025 08:55:27 07/09/20 25 07/09/2025 phary ngeal patho gens DNA and RNA panel , OSCAR+n on-pr obe, throa t Influenza B negati ve Not Available [facility] ([facility]) [address] [place] [address], [address], 07/09/2025 08:55:27 Result Notes None recorded. Problems Name Problem SNOMED Code Status Onset Date Resolution Date Notes Provider Name and Address Organization Details Recorded Time Mixed anxiety and depressive disorder 472152267 Active 2024 FATOU Parker - [facility] 5 12:16:12 Reactive airways dysfunction syndrome 159546960 Active 2024 [facility] 12:16:42 Severe persistent asthma 884008325 Active 2024 [facility] Andre[facility] 5 12:17:07 Gastroesophage al reflux disease 387519481 Active 2024 [facility] 5 12:17:18 Allergic rhinitis 10688218 Active 2024 [facility] 5 12:18:19 Problem Notes None recorded. Procedures Surgical History Date Name Laterality Status Provider Name and Address Organization Details Recorded Time 01/04/20 25 Knee Replacement completed GILDAMEREDITH TOSCANO [facility] 02/28/2025 13:03:43 Knee arthroscopy/surg dhiraj completed [facility] 06/12/2024 12:42:54 Appendectomy completed [facility] 06/12/2024 12:43:18 Imaging Results None recorded. Procedure Notes None recorded. Medical Equipment None Reported. Allergies Allergen ID Allergen Name Allergen Category Reaction Reaction Severity Criticality Documentation Date Start Date Code Code System Note Provider Name and Address Organization Details Recorded Time 29965 Latex Exam Gloves medicatio n edema Not available Not available 03/18/2023 [facility] 4 12:37:24 72674 Nitrogen mustard derivativ e (substanc e) Not available Not available Not available unabletoasse ss 07/09/2025 72087 9004 SNOMED Not Available claire - External Data Service - prod 5 08:46:57 17310 latex environme nt,medica tion swelling Not available low 07/09/20252011 66525 91 RxNorm Not Available claire - External Data Service - prod 08:46:57 Medications Name Sig Start Date Stop [...] gual route as needed for 4 days. 05/26 completed Not Available Not Available Not Available [...] Details Last Updated DateTime 5 182.88 cm 29.2 kg/m2 28978.3 6 g 96 % 80 /min 16 /min 97.9 [degF] 154/80 mm[Hg] Caity Irving [facility] 5 08:56:48 Social History Question Answer Notes LastModified by Organizat ion Details LastModified Time Tobacco Smoking Status Never Smoker [facility] 06/12/2024 12:40:50 What Is Your Level Of Caffeine Consumption? Moderate [email or web address] Information not available 06/12/2024 What Was The Date Of Your Most Recent Tobacco Screening? 07/09/2025 [email or web address] Information not available 07/09/2025 What Is Your Relationship Status? [email or web address] Information not available 06/12/2024 Sex: Unknown Functional Status Question Answer Note LastModified by Organizat [employer] Details LastModified Time Do you use any illicit or recreational drugs? No [email or web address] Information not available 06/12/2024 Do you or have you ever used any other forms of tobacco or nicotine? No Information not available 06/12/2024 What is your level of alcohol consumption? Occasional [email or web address] Information not available 06/12/2024 Are you currently employed? 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 YESWOREST Information not available 06/12/2024 Are you able to care for yourself independently? Yes [email or web address] Information not available 06/12/2024 Do you or have you ever used any nicotine-free cigarettes, vape, or chewing tobacco? No Information not available 06/12/2024 Mental Status None recorded. Family History Relationship Description Onset Age of this Age Resolved Age Notes LastModified by Organization Details LastModified Time Mother Malignant neoplastic disease Femal e Cancer [email or web address] Not available 06/12/2024 12:39:35 Medical History Condition Response Depression Y Lung Disease Y Anxiety Disorder Y Immunizations Vaccine Type Date Status Note Provider Nam e and Address Organization Details Recorded Time COVID- mRNA, LNP-S, PF, 100 mcg/0.5mL dose or 50 mcg/0.25mL dose 1 completed MILES DELGDAO, [address], [address], [facility] 06/12/2024 13:01:29 Pneumococcal conjugate PCV20, polysaccharide QPG349 conjugate, adjuvant, PF 3 completed MILES DELGADO, [address], [address], [facility] 06/12/2024 13:01:29 Influenza, split virus, trivalent, preservative 3 completed MILES DELGADO, [address], [address], [facility] 06/12/2024 13:01:29 Influenza, split virus, trivalent, PF 7 completed MILES DELGADO, [address], [address], [facility] 06/12/2024 13:01:29 Past Encounters Encounter ID Performer Location Encounter Start Date Encounter Closed Date Diagnosis/Indication Diagnosis SNOMED-CT Code Diagnosis ICD10 Code Diagnosis IMO Codes Diagnosis Note [id number] BILL WOO APRN [facility] ([facility]) [address] [place] [address] 07/09/2025 08:44:51 07/09/2025 09:27:54 Acute upper respiratory infection 04974246 J06.9 040416 Disease ca used by Rhinovirus 97069911 B34.8 685871 Acute pharyngitis 843149 003 J02.9 075867799 Health Concerns Section Related Observation LastModified by Organization Detai ls LastModified Time None Recorded Concern Status LastModified by Organization Details LastModified Time None Recorded Payers Encounter Date Sequence Insurance Name Policy Number Policy Ceron Covered Member ID Ceron Member ID Guarantor Name 07/09/2025 1 [employer] [id number] Justin Baltazar [id number] DT Justin Baltazar Notes Date Note Type Note Provider Name and Address Organization Details Recorded Time 07/09/2025 text/html Sore ThroatRepor devaughn by Patient walk in patientpatient is here today for sore throat, congestion, headache, and cough that started last night BILL WOO, BUSINESS AND FINANCIAL COUNSEL [address] [place], [address], [facility] 07/09/2025 09:26:47
--- OUTSIDE RECORDS SUMMARY | 2025-08-19 12:09 | XMS_ITS | Encounter Summary ---
Author Organization [facility] Address [address] [place] [address] Care Team Providers Care Infusion Nurse Name Role Phone Non-Staff, Physician Primary Care Provider Unava ilable Encounter Details Date Type Department Care Team (Latest Contact Info) Description 07/10/2000 Outpatient Historical [facility] Family Medicine- [address] [place] [address] Kay Gross NO ADDRESS ON FILE Ingrowing nail (Primary Dx); Acute bronchitis Social History Tobacco Use Types Packs/Day Years Used Date Smoking Tobacco: Never Assessed Sex and Gender Information Value Date Recorded Sex Assigned at Not on file 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
--- OUTSIDE RECORDS SUMMARY | 2025-08-19 12:09 | XMS_ITS | Encounter Summary ---
Author Organization [facility] Address [address] [place] [address] Care Team Providers Care Obiee Report Developer Name Role Phone Non-Staff, Physician Primary Care Provider Unava ilable Encounter Details Date Type Department Care Team (Latest Contact Info) Description 07/13/1998 Outpatient Historical [facility] Mynor Morrison MD NO ADDRESS ON FILE Chondromalacia patellae (Primary Dx) Social History Tobacco Use Types Packs/Day Years Used Date Smoking Tobacco: Never Assessed Sex and Gender Information Value Date Recorded Sex Assigned at Not on file 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
--- OUTSIDE RECORDS SUMMARY | 2025-08-19 12:09 | XMS_ITS | Encounter Summary ---
Author Organization [facility] Address [address] [place] [address] Care Team Providers Care Recruiter Specialist Name Role Phone Non-Staff, Physician Primary Care Provider Unava ilable Encounter Details Date Type Department Care Team (Latest Contact Info) Description 10/11/1999 Outpatient Historical [facility] Medicine- [address] [phone] Aldair Stein MD [address] [phone] Streptococcal sore throat (Primary Dx) Social History Tobacco Use Types Packs/Day Years Used Date Smoking Tobacco: Never Assessed Sex and Gender Information Value Date Recorded Sex Assigned at Not on file 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
--- OUTSIDE RECORDS SUMMARY | 2025-08-19 12:09 | XMS_ITS | Encounter Summary ---
Author Organization [facility] Address [address] 

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
--- NOTE | 2025-08-19 12:22 | XR_ITS ---
WS: [id number] Portable AP upright chest, 08/19/2025 Clinical Data: cough Comparison: Portable chest, 01/14/2025 Findings: No nodules, masses or effusions are seen. The heart is normal. The pulmonary vascularity is not increased. No pneumonia or pneumothorax is seen. XR/XR chest 1V portable [id number] Impression: Negative chest.
--- NOTE | 2025-08-19 12:22 | W.ED.ASTHMA ---
HPI - Asthma General: Chief Complaint: Asthma Stated Complaint: sob, wheezing Time Seen by Provider: 08/19/25 12:17 Source: patient Mode of arrival: ambulatory Limitations: no limitations History of Present Illness: 40-year-old male has a history of asthma states the last 3 days been having some cough congestion along with increased wheezing. He denies any fever states had some improvement with his inhaler. States he feels like he needs some steroids. He denies any chest pain denies any vomiting or diarrhea. Related Data Home Medications ?Medication ?Instructions ?Recorded ?Confirmed budesonide-formoterol HFA 160 2 inh inhalation BID 10/29/23 07/22/25 mcg-4.5 mcg/actuation aerosol inhaler (Symbicort) cetirizine 10 mg tablet 10 mg PO DAILY 10/29/23 07/22/25 esomeprazole magnesium 20 mg 20 mg PO DAILY 10/29/23 07/22/25 capsule,delayed release montelukast 10 mg tablet 10 mg PO DAILY 10/29/23 07/22/25 Previous Rx's ?Medication ?Instructions ?Recorded albuterol sulfate 90 mcg/actuation 2 inh inhalation Q6H PRN shortness 08/01/23 aerosol inhaler of breath or wheezing #8.5 grams albuterol sulfate 90 mcg/actuation 2 inh inhalation Q4H PRN shortness 03/16/24 aerosol inhaler of breath or wheezing #18 grams cyproheptadine 4 mg tablet 8 mg (2 x 4 mg) PO DIRECTED PRN 02/20/25 sexual activity #180 tabs buspirone 15 mg tablet 15 mg PO BID #180 tabs 05/19/25 citalopram 20 mg tablet 20 mg PO .morning #90 tabs 05/19/25 quetiapine 100 mg tablet (Seroquel) 100 mg PO .morning #90 tabs 05/19/25 prednisone 50 mg tablet 50 mg PO DAILY #5 tabs 08/19/25 Allergies Allergy/AdvReac Type Severity Reaction Status Date / Time Latex, Natural Rubber Allergy ALGY-Rash Verified 08/19/25 12:06 mustard Allergy ALGY-Anaphy Verified 08/19/25 12:06 laxis Review of Systems Resp: Reports: dyspnea PFSH ED PFSH: Medical History Major depressive disorder, recurrent episode, moderate with anxious distress Generalized anxiety disorder with panic attacks Nicotine dependence, chewing tobacco, uncomplicated Personal history of traumatic brain injury Chronic post-traumatic stress disorder (PTSD) after combat Psychiatric care Physical Exam Const: COMMON NORMALS: no acute distress, patient oriented x3 and healthy appearing HENMT: COMMON NORMALS: normocephalic and atraumatic HEAD & SCALP: normocephalic and atraumatic Neck/C-Spine: COMMON NORMALS: full ROM and supple Chest: COMMONS NORMALS: normal inspection of the chest Resp: COMMON NORMALS: No retractions and No use of accessory muscles AUSCULTATION: wheezes Cardio: COMMON NORMALS: regular rate, regular rhythm and No murmurs present (Cardio) RATE: regular rate RHYTHM: regular rhythm GI: COMMON NORMALS: Normal to inspection, nondistended, normoactive bowel sounds present, Soft to palpation, non-tender and no masses PALPATION: Yes Soft to palpation Extremity: COMMON NORMALS: normal to inspection and full ROM Neuro: COMMON NORMALS: patient oriented x3, moves all extremities and no focal motor deficits Psych: COMMON NORMALS: mental status grossly normal, Normal thought process present and cooperative THOUGHT PROCESS: Normal thought process present Skin: COMMON NORMALS: no rashes or lesions noted and no wounds GENERAL SKIN EXAM: no rashes or lesions noted Course Vital Signs: Vital signs: Vital Signs Temperature 97.9 F 08/19/25 12:00 Pulse Rate 85 08/19/25 12:27 Respiratory Rate 18 08/19/25 12:27 Blood Pressure 126/86 08/19/25 12:00 Pulse Oximetry 97 08/19/25 12:27 Oxygen Delivery Me thod Room Air 08/19/25 12:27 MDM - Asthma Medical Decision Making 40-year-old male presents here with asthma exacerbation he has no signs of pneumonia no signs of pulmonary emboli here chest x-ray here was normal did give him a dose of steroid here along with a breathing treatment will prescribe a 5-day steroid burst. He is stable for discharge follow-up with PCP return if worsening. Medical Records I reviewed the patient's medical records. Lab Data Radiology Impressions Chest X-Ray 08/19/25 12:22 Impression: Negative chest. All radiology interpretation(s) finalized by discharge Discharge Plan Discharge Patient Disposition: Home Clinical Impression: Asthma with acute exacerbation Condition: Stable Prescriptions: New prednisone 50 mg tablet 50 mg PO DAILY Qty: 5 0RF No Action buspirone 15 mg tablet 15 mg PO BID Qty: 180 2RF Rx Instructions: Take one tablet twice per day citalopram 20 mg tablet 20 mg PO .morning Qty: 90 2RF Rx Instructions: Take one tablet every morning quetiapine [Seroquel] 100 mg tablet 100 mg PO .morning Qty: 90 2RF Rx Instructions: Take one tablet every morning cyproheptadine 4 mg tablet 8 mg PO DIRECTED PRN (Reason: sexual activity) Qty: 180 2RF Rx Instructions: May take two tablets 30 minutes prior to sexual activity albuterol sulfate 90 mcg/actuation HFA aerosol inhaler 2 inh inhalation Q6H PRN (Reason: shortness of breath or wheezing) Qty: 8.5 0RF cetirizine 10 mg tablet 10 mg PO DAILY montelukast 10 mg tablet 10 mg PO DAILY esomeprazole magnesium 20 mg capsule,delayed release(DR/EC) 20 mg PO DAILY Symbicort 160-4.5 mcg/actuation HFA aerosol inhaler 2 inh INHALATION BID albuterol sulfate 90 mcg/actuation HFA aerosol inhaler 2 inh INHALATION Q4H PRN (Reason: shortness of breath or wheezing) Qty: 18 0RF Discharge Orders: Discharge ED (Routine); Ordered 08/19/25 Ordered By: Johnny Bassett Referrals: Arely Bell FNP [Primary Care Provider, Unknown] - 4-7 days Discharge Diet: Advance as tolerated Discharge Activity: Resume usual activity Patient Instructions: Asthma (ED) Print Language: Yakut Coding Level of Care Code 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
[2025-08-19 12:27] VITALS: PULSE 85; RESP 18; O2SAT 97
[2025-08-19 12:51] VITALS: BP 143/80; PULSE 89; O2SAT 97
[2025-08-19 12:56] VITALS: BP 134/80; PULSE 80; O2SAT 96
== END 2025-08-19 12:57 | disposition home or self-care (01) ==
PROVIDERS: Emergency Provider Emergency Medicine; PCP Nurse Practitioner Family
DX: J45.901 Unspecified asthma with (acute) exacerbation (principal)
CPT/HCPCS: 71045; 94640; 99283; J7512; J9999